=== PATIENT | male | born 1985 | race Caucasian/White ===

== ENCOUNTER → 2018-04-20 | Outpatient (CLI) | payer OTHER | END | disposition home or self-care (01) | LOC: C.LAB 09:06 | PROVIDERS: ATTEND Family Medicine | DX: Z00.00 Encounter for general adult medical examination without abnormal findings (principal) ==

== ENCOUNTER 2022-11-30 07:04 | Inpatient (IN) ==
[2022-11-30 08:02] LABS: Basophils # (auto) 0.03 K/uL (0-0.2); Basophils % (auto) 0.4 %; Eosinophils # (auto) 0.04 K/uL (0-0.50); Eosinophils % (auto) 0.6 %; Hematocrit (blood only) 49.1 % (42.0-52.0); Hemoglobin 16.8 g/dl (14.0-18.0); Immature Granulocytes # (auto) 0.02 K/uL (0.01-0.20); Immature Granulocytes % (auto) 0.3 %; Lymphocytes # (auto) 1.13 K/uL (1.2-3.4); Lymphocytes % (auto) 16.6 %; Mean Corpuscular Hemoglobin 30.8 pg (25.0-34.0); Mean Corpuscular Hgb Conc 34.2 g/dL (32.0-36.0); Mean Corpuscular Volume 89.9 fL (80.0-100.0); Mean Platelet Volume 9.3 fL (9.4-12.4); Monocytes # (auto) 0.49 K/uL (0.11-0.59); Monocytes % (auto) 7.2 %; Neutrophils # (auto) 5.09 K/uL (1.40-6.50); Neutrophils % (auto) 74.9 %; Platelet Count 258 K/uL (130-400); RDW Coefficient of Variation 11.8 % (11.5-14.5); RDW Standard Deviation 38.6 fL (36.4-46.3); Red Blood Count 5.46 M/uL (4.70-6.10)
--- NOTE | 2022-11-30 08:03 | CT Scan Report ---
CT head/brain wo con CLINICAL HISTORY: 37 years-old Male with delusional. Acutely altered mental status TECHNIQUE: Multiple axial CT images of the head were obtained without contrast. A dose lowering tech nique was utilized adhering to the principles of ALARA. CT DOSE: 537.48 mGy.cm COMPARISON: None. FINDINGS: No acute intracranial hemorrhage, midline shift, intracranial mass, hydrocephalus, territorial ischem ia or abnormal extra-axial collection. The calvarium is intact. The paranasal sinuses, mastoid air cells, and middle ear cavities are clear . IMPRESSION: No acute intracranial abnormality. ACT 112: Negative or not required by law. The above report was generated using voice recognition software. It may contain grammatical, syntax o r spelling errors. Electronically signed by: Po Ryan M.D. 11/30/2022 8:02 AM
--- NOTE | 2022-11-30 08:16 | Emergency Department Note ---
Impression & Plan Psychosis, Hallucinations ED Provider Note NAME: SHREYAS BROWN AGE: 37 SEX: M : 1985 ARRIVES VIA: Walk-In INFORMANT: [Patient][] ED PROVIDER(S): [Ramirez Leon MD] CHIEF COMPLAINT: Mental health evaluation HISTORY OF PRESENT ILLNESS: The patient is a 37-year-old male who presents to the ED with his . The patient has a history of anxiety. In the last several months, the patient has been demonstrating some odd behavior. Nothing threatening but his was concerned about some of his thoughts and activities during the day. Wednesday morning, 2 days ago, the patient woke from sleep and undressed. He walked out to the front door and his heard him talking to someone. There was no one there. He was naked. He was talking with God apparently. This morning, patient awoke early with his . He eventually crumpled to the floor and stated "I cannot do this anymore." His had a difficult time getting him off the floor into the car. He was not suicidal, he did not become aggressive. He presents for psychiatric help and is currently voluntary. As per his , he had a similar episode about a year ago although, not near this severe. He was started on antianxiety medication at the time and saw a counselor. The patient did recently have a brother commit suicide about a months ago. Patient and his have a child as of a month or so ago. As per his , the patient does not use illicit drugs or alcohol. He does use medical marijuana. PMHx/PSHx: See Below SOCIAL HISTORY: See Below. PHYSICAL EXAM: GENERAL: Patient is in no acute distress. HEENT: No acute trauma, normocephalic atraumatic, mucous membranes moist, no nasal congestion. NECK: No stridor, no adenopathy, no meningismus, trachea is midline. LUNGS: Clear to auscultation bilaterally, no wheeze, no rhonchi, breath sounds equal. HEART: Without murmurs gallops or rubs, regular rate and rhythm. ABDOMEN: Soft, nontender, bowel sounds positive, no peritonitis. EXTREMITIES: No cyanosis or edema, full range of motion of all the joints without pain or difficulty, no signs for acute trauma. NEUROLOGIC: Oriented x 3, no acute motor or sensory deficits, no focal weakness. SKIN: No rash, no jaundice, no diaphoresis. Psychiatric: Lying prone on the bed with his face in the pillow. Poor historian, answers yes and no to a few questions. DIFFERENTIAL DIAGNOSIS: Mood disorder, suicidality, psychosis, infection, hypoglycemia, electrolyte abnormalities, intracerebral event, toxicologic etiology, as well as other pathologies. EMERGENCY DEPARTMENT COURSE/PROCEDURES: Prior/Outside records reviewed: None. MEDICAL DECISION MAKING: There is no leukocytosis or concerning anemia. There is a normal platelet count. No renal failure or significant electrolyte abnormality. Bilirubin slightly elevated, the remaining liver enzymes were unremarkable. The patient appeared to be in a euthyroid state. Urinalysis showed potential dehydration, no infection. Aspirin, Tylenol and alcohol levels were not undetectable. Urine tox was positive for marijuana. COVID test returned negative. Brain CT showed no acute bleed or mass effect. Patient appears to be having an acute psychotic episode. He is hallucinating. He is not able to care for himself properly at home. Patient was felt medically clear, the patient was seen by psychiatry case management and by this [facility] psychiatric unit, [facility] Patient has been accepted to [facility]. as a voluntary psychiatric hospitalization. Patient remained cooperative and appeared stable while here in the ED. DISPOSITION: The patient's presentation and findings warrant a psychiatric hospitalization. Past Med/Surg History Medical History Psychological disorder Surgical History H/O wisdom tooth extraction History of ear surgery excisional biopsy of left earlobe cyst-08/09/19-Dr Mcdonough Family History Father Family history of diabetes mellitus in father Stroke Grandmother No problems noted. Grandfather Family history of diabetes mellitus in father Other No family history of adverse response to anesthesia No family history of bleeding disorder Social History Smoking Status: Never smoker packs per day: 1; Second Hand Exposure: Yes; Hx Alcohol Use: No Hx Substance Use: No Preferred Language: Congolese Communication Ability: Effective Hearing Ability: Normal Medical Referral Coordinator Required: No Beliefs That Will Affect Care: None marital status: Current Living Situation: Spouse current occupational status: unemployed Feels Safe at Home: Yes Gender Identity: Male Assistive Devices: None Allergies Allergies Allergy/AdvReac Type Severity Reaction Status Date / Time No Known Drug Allergies Allergy Verified 05/11/22 13:46 Home Meds Home Medications Medication Instructions Recorded Confirmed escitalopram oxalate 10 mg tablet 20 mg PO DAILY 03/11/22 11/30/22 (Lexapro) Results & Data (ED) Vital Signs Vital Signs - 24 hr 11/30/22 07:10 11/30/22 10:33 Temperature 36.3 C L 36.8 C Temperature Source Temporal Artery Scan Oral Pulse Rate 89 Pulse Rate [Left Finger] 86 Respiratory Rate 20 16 Respiratory Effort / Characteristics Non-Labored Spontaneous Respiratory Depth Normal Normal Blood Pressure 138/89 Blood Pressure [Left Arm] 138/93 Blood Pressure Mean 105 Blood Pressure Mean [Left Arm] 108 Pulse Oximetry 100 99 Oxygen Delivery Method Room Air Room Air Sepsis New/Unexplained Change in Mental Status N/A Sepsis Action Taken by Nursing No Action Required Home Medications Current Medication List: was personally reviewed by me Laboratory Data Attestation: I reviewed the patient's lab results. 11/30/22 07:40 11/30/22 07:40 Lab Results 11/30/22 11/30/22 11/30/22 Range/Units 07:22 07:40 07:40 WBC 6.80 (4.8-10.8) K/ul RBC 5.46 (4.70-6.10) M/uL Hgb 16.8 (14.0-18.0) g/dl Hct 49.1 (42.0-52.0) % MCV 89.9 (80.0-100.0) fL MCH 30.8 (25.0-34.0) pg MCHC 34.2 (32.0-36.0) g/dL RDW Std Deviation 38.6 (36.4-46.3) fL RDW Coeff of Kevin 11.8 (11.5-14.5) % Plt Count 258 (130-400) K/uL MPV 9.3 L (9.4-12.4) fL Immature Gran % (Auto) 0.3 % Neut % (Auto) 74.9 % Lymph % (Auto) 16.6 % Robeson % (Auto) 7.2 % Eos % (Auto) 0.6 % Baso % (Auto) 0.4 % Neut # (Auto) 5.09 (1.40-6.50) K/uL Lymph # (Auto) 1.13 L (1.2-3.4) K/uL Robeson # (Auto) 0.49 (0.11-0.59) K/uL Eos # (Auto) 0.04 (0-0.50) K/uL Baso # (Auto) 0.03 (0-0.2) K/uL Immature Gran # (Auto) 0.02 (0.01-0.20) K/uL Sodium 137 (136-145) mmol/L Potassium 3.7 (3.5-5.1) mmol/L Chloride 102 (98-107) mmol/L Carbon Dioxide 26 (21-32) mmol/L Anion Gap 9 (3-11) BUN 18 (6-23) mg/dl Creatinine 0.93 (0.6-1.4) mg/dl Est Cr Clr Drug Dosing Not Reportable Est GFR ( Amer) 119.4 ml/min Est GFR (Non-Af Amer) 103.0 ml/min BUN/Creatinine Ratio 19.4 (10-20) Glucose 140 H (70-99(Fasting)) mg/dl Calcium 9.9 (8.5-10.1) mg/dl Total Bilirubin 1.5 H (0.2-1.0) mg/dl AST 24 (13-39) U/L ALT 18 (7-52) U/L Alkaline Phosphatase 79 (34-104) U/L Total Protein 7.8 (6.0-8.3) gm/dl Albumin 4.7 (3.4-5.0) gm/dl Globulin 3.1 (2.5-4.0) gm/dl Albumin/Globulin Ratio 1.5 (0.9-2) TSH (0.300-4.500) uIu/ml Urine Color Urine Appearance (Clear) Urine pH (4.5-7.5) Ur Specific Prospect (1.000-1.030) Urine Protein (Negative) Urine Glucose (UA) (Negative) Urine Ketones (Negative) Urine Blood (Negative) Urine Nitrite (Negative) Urine Bilirubin (Negative) Urine Urobilinogen (Negative) Ur Leukocyte Esterase (Negative) Urine WBC (Auto) (0-5) /hpf Urine RBC (Auto) (0-4) /hpf U Hyaline Cast (Auto) (0-5) /lpf U Epithel Cells (Auto) (0-5) /lpf Urine Bacteria (Auto) (Negative) Salicylates (3.0-30) mg/dl Urine Opiates Screen (Neg) Ur Methadone, Qual (Neg) Acetaminophen (10-30) ug/ml Urine Barbiturates (Neg) Ur Phencyclidine (PCP) (Neg) U Amphetamin/Meth Scrn (Neg) MDMA (Ecstasy) Screen (Neg) U Benzodiazepines Scrn (Neg) Ur Cocaine Metabolite (Neg) U Marijuana (THC) Screen (Neg) Ethyl Alcohol mg/dL (<10.0) mg/dl SARS-CoV-2, RNA, NAAT NEGATIVE (NEGATIVE) 11/30/22 11/30/22 11/30/22 Range/Units 07:40 07:40 07:40 WBC (4.8-10.8) K/ul RBC (4.70-6.10) M/uL Hgb (14.0-18.0) g/dl Hct (42.0-52.0) % MCV (80.0-100.0) fL MCH (25.0-34.0) pg MCHC (32.0-36.0) g/dL RDW Std Deviation (36.4-46.3) fL RDW Coeff of Kevin (11.5-14.5) % Plt Count (130-400) K/uL MPV (9.4-12.4) fL Immature Gran % (Auto) % Neut % (Auto) % Lymph % (Auto) % Robeson % (Auto) % Eos % (Auto) % Baso % (Auto) % Neut # (Auto) (1.40-6.50) K/uL Lymph # (Auto) (1.2-3.4) K/uL Robeson # (Auto) (0.11-0.59) K/uL Eos # (Auto) (0-0.50) K/uL Baso # (Auto) (0-0.2) K/uL Immature Gran # (Auto) (0.01-0.20) K/uL Sodium (136-145) mmol/L Potassium (3.5-5.1) mmol/L Chloride (98-107) mmol/L Carbon Dioxide (21-32) mmol/L Anion Gap (3-11) BUN (6-23) mg/dl Creatinine (0.6-1.4) mg/dl Est Cr Clr Drug Dosing Est GFR ( Amer) ml/min Est GFR (Non-Af Amer) ml/min BUN/Creatinine Ratio (10-20) Glucose (70-99(Fasting)) mg/dl Calcium (8.5-10.1) mg/dl Total Bilirubin (0.2-1.0) mg/dl AST (13-39) U/L ALT (7-52) U/L Alkaline Phosphatase (34-104) U/L Total Protein (6.0-8.3) gm/dl Albumin (3.4-5.0) gm/dl Globulin (2.5-4.0) gm/dl Albumin/Globulin Ratio (0.9-2) TSH 1.188 (0.300-4.500) uIu/ml Urine Color Urine Appearance (Clear) Urine pH (4.5-7.5) Ur Specific Prospect (1.000-1.030) Urine Protein (Negative) Urine Glucose (UA) (Negative) Urine Ketones (Negative) Urine Blood (Negative) Urine Nitrite (Negative) Urine Bilirubin (Negative) Urine Urobilinogen (Negative) Ur Leukocyte Esterase (Negative) Urine WBC (Auto) (0-5) /hpf Urine RBC (Auto) (0-4) /hpf U Hyaline Cast (Auto) (0-5) /lpf U Epithel Cells (Auto) (0-5) /lpf Urine Bacteria (Auto) (Negative) Salicylates < 3.0 L (3.0-30) mg/dl Urine Opiates Screen (Neg) Ur Methadone, Qual (Neg) Acetaminophen < 3 L (10-30) ug/ml Urine Barbiturates (Neg) Ur Phencyclidine (PCP) (Neg) U Amphetamin/Meth Scrn (Neg) MDMA (Ecstasy) Screen (Neg) U Benzodiazepines Scrn (Neg) Ur Cocaine Metabolite (Neg) U Marijuana (THC) Screen (Neg) Ethyl Alcohol mg/dL < 10.0 (<10.0) mg/dl SARS-CoV-2, RNA, NAAT (NEGATIVE) 11/30/22 11/30/22 Range/Units 08:28 08:28 WBC (4.8-10.8) K/ul RBC (4.70-6.10) M/uL Hgb (14.0-18.0) g/dl Hct (42.0-52.0) % MCV (80.0-100.0) fL MCH (25.0-34.0) pg MCHC (32.0-36.0) g/dL RDW Std Deviation (36.4-46.3) fL RDW Coeff of Kevin (11.5-14.5) % Plt Count (130-400) K/uL MPV (9.4-12.4) fL Immature Gran % (Auto) % Neut % (Auto) % Lymph % (Auto) % Robeson % (Auto) % Eos % (Auto) % Baso % (Auto) % Neut # (Auto) (1.40-6.50) K/uL Lymph # (Auto) (1.2-3.4) K/uL Robeson # (Auto) (0.11-0.59) K/uL Eos # (Auto) (0-0.50) K/uL Baso # (Auto) (0-0.2) K/uL Immature Gran # (Auto) (0.01-0.20) K/uL Sodium (136-145) mmol/L Potassium (3.5-5.1) mmol/L Chloride (98-107) mmol/L Carbon Dioxide (21-32) mmol/L Anion Gap (3-11) BUN (6-23) mg/dl Creatinine (0.6-1.4) mg/dl Est Cr Clr Drug Dosing Est GFR ( Amer) ml/min Est GFR (Non-Af Amer) ml/min BUN/Creatinine Ratio (10-20) Glucose (70-99(Fasting)) mg/dl Calcium (8.5-10.1) mg/dl Total Bilirubin (0.2-1.0) mg/dl AST (13-39) U/L ALT (7-52) U/L Alkaline Phosphatase (34-104) U/L Total Protein (6.0-8.3) gm/dl Albumin (3.4-5.0) gm/dl Globulin (2.5-4.0) gm/dl Albumin/Globulin Ratio (0.9-2) TSH (0.300-4.500) uIu/ml Urine Color Dark Yellow Urine Appearance Clear (Clear) Urine pH 5.5 (4.5-7.5) Ur Specific Prospect 1.035 H (1.000-1.030) Urine Protein 1+ H (Negative) Urine Glucose (UA) Negative (Negative) Urine Ketones 4+ H (Negative) Urine Blood Negative (Negative) Urine Nitrite Negative (Negative) Urine Bilirubin 1+ H (Negative) Urine Urobilinogen Negative (Negative) Ur Leukocyte Esterase Trace H (Negative) Urine WBC (Auto) 1-5 (0-5) /hpf Urine RBC (Auto) 0-4 (0-4) /hpf U Hyaline Cast (Auto) 5-10 H (0-5) /lpf U Epithel Cells (Auto) 5-10 H (0-5) /lpf Urine Bacteria (Auto) Negative (Negative) Salicylates (3.0-30) mg/dl Urine Opiates Screen Neg (Neg) Ur Methadone, Qual Neg (Neg) Acetaminophen (10-30) ug/ml Urine Barbiturates Neg (Neg) Ur Phencyclidine (PCP) Neg (Neg) U Amphetamin/Meth Scrn Neg (Neg) MDMA (Ecstasy) Screen Neg (Neg) U Benzodiazepines Scrn Neg (Neg) Ur Cocaine Metabolite Neg (Neg) U Marijuana (THC) Screen Pos H (Neg) Ethyl Alcohol mg/dL (<10.0) mg/dl SARS-CoV-2, RNA, NAAT (NEGATIVE) Administered Medications Discontinued Medications Haloperidol (Haloperidol 5 Mg Tab) Confirm Administered Dose 5 mg PO .Serstech-MED ONE Stop: 11/30/22 14:17 Last Admin: 11/30/22 14:21 Dose: 5 mg Documented By: KELECHI Imaging Data Radiologist's Impression: Head CT 11/30/22 07:23 CT head/brain wo con CLINICAL HISTORY: 37 years-old Male with delusional. Acutely altered mental status TECHNIQUE: Multiple axial CT images of the head were obtained without contrast. A dose lowering technique was utilized adhering to the principles of ALARA. CT DOSE: 537.48 mGy.cm COMPARISON: None. FINDINGS: No acute intracranial hemorrhage, midline shift, intracranial mass, hydrocephalus, territorial ischemia or abnormal extra-axial collection. The calvarium is intact. The paranasal sinuses, mastoid air cells, and middle ear cavities are clear. IMPRESSION: No acute intracranial abnormality. ACT 112: Negative or not required by law. The above report was generated using voice recognition software. It may contain grammatical, syntax or spelling errors. Electronically signed by: Po Ryan M.D. 11/30/2022 8:02 AM Discharge Plan Visit Data Chief Complaint: Mental Health Evaluation Stated Complaint: MENTAL HEALTH CRISIS,DIZZINESS,NAUSEA ED Provider: Ramirez Leon Discharge Problem: Psychosis, Hallucinations Patient Disposition: Admitted As Inpatient Condition: Good Discharge Instructions Interventions: ED Discharge Assessment Last Done: 11/30/22 13:25
[2022-11-30 08:18] LABS: Alanine Aminotransferase 18 U/L (7-52); Albumin Globulin Ratio 1.5 (0.9-2); Albumin Level 4.7 gm/dl (3.4-5.0); Alkaline Phosphatase 79 U/L (34-104); Anion Gap 9 (3-11); Aspartate Aminotransferase 24 U/L (13-39); BUN Creatinine Ratio 19.4 (10-20); Bilirubin,Total 1.5 mg/dl (0.2-1.0); Blood Urea Nitrogen 18 mg/dl (6-23); Calcium 9.9 mg/dl (8.5-10.1); Carbon Dioxide 26 mmol/L (21-32); Chloride 102 mmol/L (98-107); Est GFR (African American) 119.4 ml/min; Globulin 3.1 gm/dl (2.5-4.0); Glucose 140 mg/dl (70-99(Fasting)); Potassium 3.7 mmol/L (3.5-5.1); Sodium 137 mmol/L (136-145); Total Protein 7.8 gm/dl (6.0-8.3)
[2022-11-30 08:37] LABS: Acetaminophen < 3 ug/ml (10-30); Salicylate < 3.0 mg/dl (3.0-30)
[2022-11-30 08:52] LABS: Appearance Urine Clear (Clear); Bacteria Urine Automated Negative (Negative); Blood Urine Negative (Negative); Color Urine Dark Yellow; Glucose Urine UA Negative (Negative); Ketones Urine 4+ (Negative); Leukocyte Esterase Urine Trace (Negative); Nitrite Urine Negative (Negative); Protein Urine 1+ (Negative); RBC Urine Automated 0-4 /hpf (0-4); Specific Gravity Urine 1.035 (1.000-1.030); Urobilinogen Urine Negative (Negative); pH Urine 5.5 (4.5-7.5)
[2022-11-30 08:58] LABS: Bilirubin Urine 1+ (Negative)
[2022-11-30 09:30] LABS: Amphetamines+Metham, Urine Neg (Neg); Barbiturates, Urine Neg (Neg); Benzodiazepine, Urine Neg (Neg); Cocaine, Urine Neg (Neg); MDMA (Ecstacy), Urine Neg (Neg); Methadone, Urine Neg (Neg); Opiate, Urine Neg (Neg); Phencyclidine, Urine Neg (Neg)
[2022-11-30] MEDS ORDERED: ALUMINUM/MAGNESIUM SUSP 30 ML UDC PO PRN (13:49)
[2022-11-30] MEDS ORDERED: hydrOXYzine HCl 25 MG TAB PO PRN (13:49)
[2022-11-30] MEDS ORDERED: SODIUM CHLORIDE 0.65% NA SOLN 45 ML (OCEAN) PRN (13:49)
[2022-11-30] MEDS ORDERED: MAGNESIUM HYDROXIDE SUSP 30 ML UDC PO PRN (13:49)
[2022-11-30] MEDS ORDERED: BISMUTH SUBSALICYLATE LIQD 236 ML PO PRN (13:49)
[2022-11-30] MEDS ORDERED: ACETAMINOPHEN 325 MG TAB PO PRN (13:49)
[2022-11-30] MEDS ORDERED: haloperidoL 5 MG TAB PO PRN (14:13)
[2022-11-30] MEDS ORDERED: OLANZapine 5 MG TABLET PO PRN (14:14)
[2022-11-30] MEDS ORDERED: haloperidoL 5 MG TAB PO ONE (14:16)
[2022-11-30] MEDS: risperiDONE 1 MG TABLET PO SCH (20:15)
[2022-11-30] MEDS ORDERED: risperiDONE 0.5 MG TABLET PO SCH (21:00)
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
[2022-12-01] MEDS: risperiDONE 1 MG TABLET PO SCH ×2 (08:30→21:14)
[2022-12-01] MEDS ORDERED: OLANZapine 5 MG TABLET PO PRN (10:32)
[2022-12-01] MEDS ORDERED: risperiDONE 0.5 MG TABLET PO PRN (12:02)
--- NOTE | 2022-12-02 09:05 | Psychiatric Progress Note ---
Date of Service December 02, 2022 Impression / Recommendations Impression Michael Rliey is a 37 year old man with a history of ADHD and depression who was admitted for bizarre behaviors, decreased sleep and inability to care for himself. Diagnostically consistent with unspecified psychosis, differential is broad including blaise/mixed episode of BPAD (decreased sleep, family history, and possible episode of hypomania in the past ~ 1 year ago, has been on SSRI) versus substance-induced psychosis 2/2 significant medical marijuana use versus MDD with psychotic features versus primary psychotic disorder (unlikely given no hx and would be atypical age of onset) vs medical cause (unlikely given normal head CT in ED and no significant lab abnormalities or neurological symptoms). He has not been eating well and UA consistent with this with elevated ketones and tachycardia so will continue to monitor closely. He denies any symptoms related to elevated BP or tachycardia. He is deemed unstable and requires psychiatric hospitalization for diagnostic clarification, safety and stabilization, medication management and development of further coping skills. MNPR due to paranoia and psychosis 12/02/2022: Ongoing poor sleep, psychomotor activation and elevated mood suggestive of acute blaise. Now refusing antipsychotic medication options and options to try alternative mood stabilizers or other sedating agents. Will order lorazpeam at hs to attempt to help with sleep. (1) Psychosis: (2) Cannabis use with anxiety disorder: Plan 12/02/2022: Start ativan 1mg HS prn insomnia 12/01/2022: The patient was admitted to the [facility] ([facility] mental health unit) on q15 min checks (behavioral with suicide precautions) for safety. The patient will participate in group, recreational, and milieu therapies and will be offered additional individual and family sessions as clinically appropriate. * Risperidone 1mg BID * Zyprexa 2.5mg BID prn for agitation/anxiety * Discontinue escitalopram given concern for possible manic vs mixed episode Inventory Assets Strengths: supportive relationships, willing to get treatment Needs: safety and stabilization, medication adjustment, additional coping skills, increased outpatient services Suicide Risk Level Suicide Risk Level: Moderate (q15 min suicide checks) (denies SI but with disorganized/bizarre behaviors and at times endorses depression but feels safe in the hospital, able to safety contract and agrees to let nursing/staff know should they develop plan, intent or feel unable ) Risk Factors Assessment Male: Yes : Yes Do You Have Access To A Gun?: Yes (pt needs firearms secured) Mental Health Diagnoses: Yes Substance Use Disorders: Yes Previous Attempt: No Family History of Suicide: Yes (extensive) Previous Psychiatric Hospitalization: No Hopelessness: No Protective Factors Assessment : Yes Responsible for Young Children: Yes 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 Chief Complaint "I would not like either of them". Review of Systems Sleep Information Total Hours of Sleep: 3.75 Sleep Comments: Frequent awakenings and restlessness Meal Information Percent Meal Consumed - Breakfast: 100 Percent Meal Consumed - Lunch: 75 Percent Meal Consumed - Dinner: 10 Subjective Subjective Patient was seen & assessed and interval progress reviewed with treatment team nursing and social work. Attending only exercise group as can't tolerate anything else. Spends most of the day pacing the unit walking up and down the halls. Last evening sat on the floor reading his patient handbook aloud. Confused at times, not able to recall his kids ages or whether or not his was a nurse at [facility] (which she has been for a long time). Refused his risper idone last night. Hardly slept last night. Tachycardic at times but he denies any symptoms related to this. Refused risperidone again today. Refusing any other mood stabilizers or antipsychotics as we discussed options that could help with sleep and thought clarity. Discussed my concern his symptoms may be impacted by cannabis use but also likely represent acute blaise. He states he prefers to "think about" medications but declines at this time. Reviewed that I would continue to have them offered to him as I think they are important. Reviewed my concerns about his poor sleep and that medication can help with this. Endorses "excellent" mood. Slightly intrusive/inappropriate with female staff at times. Physical Exam Psychiatric Orientation: alert and oriented x 3 Apperance: appropriately dressed and appropriately groomed Eye Contact: + fair eye contact Motor Behavior: + psychomotor agitation Speech: + abnormal rate/rhythm/volume of speech (slightly expansive) Affect: euthymic affect Mood: + anxious mood and + irritable mood Thought Process: + tangential thought process and + looseness of associations Thought Content: + paranoid and + delusions Suicidal Thoughts: denies suicidal thoughts, denies suicidal plan and denies suicidal intent Homicidal Thoughts: denies homicidal thoughts Hallucinations: + auditory hallucinations; no visual hallucinations Cognition: attention grossly intact and language grossly intact; + recent memory not intact and + remote memory not intact Insight: + limited insight Judgment: + limited judgement Vital Signs (Past 24 Hours) Last Vital Signs Temp 37 C 12/02/22 06:42 Pulse 130 H 12/02/22 06:43 Resp 18 12/02/22 06:42 BP 125/85 12/02/22 06:43 Pulse Ox 99 12/01/22 20:25 O2 Del Method Room Air 12/01/22 20:25 Results & Data ([facility]) Current Inpatient Medications Current Inpatient Medications: Current Inpatient Medications Acetaminophen (Acetaminophen 325 Mg Tab) 650 mg PO Q4H PRN PRN Reason: Headache or Minor Fever Stop: 12/30/22 13:48 Al Hydrox/Mg Hydrox/Simethicone (Aluminum/Magnesium Susp 30 Ml Udc) 30 ml PO Q4H PRN PRN Reason: GI Upset Stop: 12/30/22 13:48 Bismuth Subsalicylate (Bismuth Subsalicylate Liqd 236 Ml) 15 ml PO PRN PRN PRN Reason: Loose Stool Stop: 12/30/22 13:48 Haloperidol (Haloperidol 5 Mg Tab) 5 mg PO DAILY PRN PRN Reason: psychosis/agitation Stop: 12/30/22 14:12 Hydroxyzine HCl (Hydroxyzine Hcl 25 Mg Tab) 25 mg PO Q4H PRN PRN Reason: Anxiety Stop: 12/30/22 13:48 Hydroxyzine HCl (Hydroxyzine Hcl 25 Mg Tab) 50 mg PO HSZ PRN PRN Reason: Insomnia Stop: 12/30/22 13:48 Magnesium Hydroxide (Magnesium Hydroxide Susp 30 Ml Udc) 30 ml PO DAILY PRN PRN Reason: Constipation Stop: 12/30/22 13:48 Risperidone (Risperidone 1 Mg Tablet) 1 mg PO BID CLARIBEL Stop: 12/30/22 20:59 Last Admin: 12/01/22 21:14 Dose: Not Given Risperidone (Risperidone 0.5 Mg Tablet) 0.5 mg PO BID PRN PRN Reason: Anxiety/Agitation Stop: 12/31/22 12:14 Sodium Chloride (Sodium Chloride 0.65% Na Soln 45 Ml ([place])) 1 - 2 sprays NA PRN PRN PRN Reason: Nasal Dryness/Congestion Stop: 12/30/22 13:48 Mental Health & Subst Abuse Tx Therapist Name of Therapist: None Operating Table Assembler Name of Operating Table Assembler: None Post Discharge Appointments Primary Care Physician Name Of Family Doctor/PCP: Jacquie (PCP recently left/will be assigned new PCP) (1) Psychosis Psychosis type: unspecified psychosis type Qualified Code(s): F29 - Unspecified psychosis not due to a substance or known physiological condition
[2022-12-02] MEDS: risperiDONE 1 MG TABLET PO SCH ×2 (09:51→20:48)
[2022-12-02 10:35] LABS: Marijuana Quant, GCMS Urine 2101 ng/mL (<5)
[2022-12-02] MEDS: LORazepam 1 MG TAB PO PRN (20:48)
[2022-12-03] MEDS: risperiDONE 1 MG TABLET PO SCH ×2 (08:52→21:12)
--- NOTE | 2022-12-03 08:52 | Psychiatric Progress Note ---
Date of Service December 03, 2022 Impression / Recommendations Impression Michael Riley is a 37 year old man with a history of ADHD and depression who was admitted for bizarre behaviors, decreased sleep and inability to care for himself. Diagnostically consistent with unspecified psychosis, differential is broad including blaise/mixed episode of BPAD (decreased sleep, family history, and possible episode of hypomania in the past ~ 1 year ago, has been on SSRI) versus substance-induced psychosis 2/2 significant medical marijuana use (level 2,101 ng/mL) versus MDD with psychotic features versus primary psychotic disorder (unlikely given no hx and would be atypical age of onset) vs medical cause (unlikely given normal head CT in ED and no significant lab abnormalities or neurological symptoms). He has not been eating well and UA consistent with this with elevated ketones and tachycardia so will continue to monitor closely. He denies any symptoms related to elevated BP or tachycardia. He is deemed unstable and requires psychiatric hospitalization for diagnostic clarification, safety and stabilization, medication management and development of further coping skills. MNPR due to paranoia and psychosis 12/03/2022: Slept a little more with addition of ativan and took risperidone last night. Unwilling to consider a more sedating mood stabilizer/antipsychotic option so will continue with risperidone. Still with some tachycardia which could be from risperidone versus his frequent pacing/lack of sleep. Presentation remains suggestive of acute blaise. (1) Psychosis: (2) Cannabis use with anxiety disorder: (3) Bipolar 1 disorder with moderate blaise: Plan 12/03/2022: Continue current medications and treatment plan. Will attempt fasting lipid panel and glucose when he is better able to tolerate this. 12/02/2022: Start ativan 1mg HS prn insomnia 12/01/2022: The patient was admitted to the [facility] ([facility] mental health unit) on q15 min checks (behavioral with suicide precautions) for safety. The patient will participate in group, recreational, and milieu therapies and will be offered additional individual and family sessions as clinically appropriate. * Risperidone 1mg BID * Zyprexa 2.5mg BID prn for agitation/anxiety * Discontinue escitalopram given concern for possible manic vs mixed episode Inventory Assets Strengths: supportive relationships, willing to get treatment Needs: safety and stabilization, medication adjustment, additional coping skills, increased outpatient services Suicide Risk Level Suicide Risk Level: Moderate (q15 min suicide checks) (denies SI but with disorganized/bizarre behaviors and at times endorses depression but feels safe in the hospital, able to safety contract and agrees to let nursing/staff know should they develop plan, intent or feel unable ) Suicide Risk Level Comments: . 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 Chief Complaint "That sounds like me". Review of Systems Sleep Information Total Hours of Sleep: 5 Sleep Comments: Frequent awakenings and restlessness Meal Information Percent Meal Consumed - Breakfast: 100 Percent Meal Consumed - Lunch: 100 Percent Meal Consumed - Dinner: 90 Subjective Subjective Patient was seen & assessed and interval progress reviewed with treatment team nursing and social work. Took risperidone and prn ativan last night and slept 5 hours. Up and pacing again this morning but attended community meeting and was able to tolerate this. Remains very polite but seems to be distracted and speaking today in a somewhat odd monotone voice. Tells me "I'm feeling better". Wonders if he is better and now ready to leave the hospital, discussed my recommendation that I remain concerned about blaise and his limited sleep and thought disorganization. He disagrees with this but does today agree that he may have been experiencing blaise prior to coming to the hospital. Asks me what the word blaise means and we review how blaise in bipolar disorder can present. After listing of symptoms he tells me "that sounds like me before". Reviewed strong genetic link with BPAD and he agrees that his brother had BPAD. He doesn't know of anyone else in his family with this. Struggles to follow our discussion at times and remains very concrete. For example when we discuss that his brother had bipolar disorder and that this often runs in families he tells me "but he's not me, I'm not my brother". Offered him option of signing 72 hour notice, he chose not to sign this. Likes the risperidone and denies any side effects from this or from ativan last night. Still with some tachycardia but denies any symptoms from this. Unwilling to consider any other antipsychotics or more sedating options. Physical Exam Psychiatric Orientation: alert and oriented x 3 Apperance: appropriately dressed and appropriately groomed Eye Contact: + fair eye contact Motor Behavior: + psychomotor agitation Speech: + abnormal rate/rhythm/volume of speech (monotone) Affect: euthymic affect Mood: + anxious mood Thought Process: + tangential thought process, + looseness of associations and + concrete thought process Thought Content: + paranoid and + delusions Suicidal Thoughts: denies suicidal thoughts, denies suicidal plan and denies suicidal intent Homicidal Thoughts: denies homicidal thoughts Hallucinations: no auditory hallucinations (unclear if responding at times) and no visual hallucinations Cognition: language grossly intact; + recent memory not intact, + remote memory not intact and + attention not intact Insight: + limited insight Judgment: + limited judgement Vital Signs (Past 24 Hours) Last Vital Signs Temp 36.7 C 12/03/22 06:43 Pulse 109 H 12/03/22 06:43 Resp 18 12/03/22 06:43 BP 125/89 12/03/22 06:43 Pulse Ox 99 12/02/22 20:14 O2 Del Method Room Air 12/02/22 20:14 Results & Data ([facility]) Laboratory Results Laboratory Results - last 24 hr 11/30/22 08:28 U Marijuana THC Carboxy 2101 H Drug Screen Comment SEE NOTE Current Inpatient Medications Current Inpatient Medications: Current Inpatient Medications Acetaminophen (Acetaminophen 325 Mg Tab) 650 mg PO Q4H PRN PRN Reason: Headache or Minor Fever Stop: 12/30/22 13:48 Al Hydrox/Mg Hydrox/Simethicone (Aluminum/Magnesium Susp 30 Ml Udc) 30 ml PO Q4H PRN PRN Reason: GI Upset Stop: 12/30/22 13:48 Bismuth Subsalicylate (Bismuth Subsalicylate Liqd 236 Ml) 15 ml PO PRN PRN PRN Reason: Loose Stool Stop: 12/30/22 13:48 Haloperidol (Haloperidol 5 Mg Tab) 5 mg PO DAILY PRN PRN Reason: psychosis/agitation Stop: 12/30/22 14:12 Hydroxyzine HCl (Hydroxyzine Hcl 25 Mg Tab) 25 mg PO Q4H PRN PRN Reason: Anxiety Stop: 12/30/22 13:48 Hydroxyzine HCl (Hydroxyzine Hcl 25 Mg Tab) 50 mg PO HSZ PRN PRN Reason: Insomnia Stop: 12/30/22 13:48 Lorazepam (Lorazepam 1 Mg Tab) 1 mg PO HS PRN PRN Reason: insomnia Stop: 01/01/23 16:37 Last Admin: 12/02/22 20:48 Dose: 1 mg Magnesium Hydroxide (Magnesium Hydroxide Susp 30 Ml Udc) 30 ml PO DAILY PRN PRN Reason: Constipation Stop: 12/30/22 13:48 Risperidone (Risperidone 1 Mg Tablet) 1 mg PO BID CLARIBEL Stop: 12/30/22 20:59 Last Admin: 12/02/22 20:48 Dose: 1 mg Risperidone (Risperidone 0.5 Mg Tablet) 0.5 mg PO BID PRN PRN Reason: Anxiety/Agitation Stop: 12/31/22 12:14 Sodium Chloride (Sodium Chloride 0.65% Na Soln 45 Ml ([place])) 1 - 2 sprays NA PRN PRN PRN Reason: Nasal Dryness/Congestion Stop: 12/30/22 13:48 Mental Health & Subst Abuse Tx Therapist Name of Therapist: None Elephant Keeper Name of Elephant Keeper: None Post Discharge Appointments Primary Care Physician Name Of Family Doctor/PCP: Jacquie (PCP recently left/will be assigned new PCP) (1) Psychosis Psychosis type: unspecified psychosis type Qualified Code(s): F29 - Unspecified psychosis not due to a substance or known physiological condition
--- NOTE | 2022-12-04 09:12 | Psychiatric Progress Note ---
Date of Service December 04, 2022 Impression / Recommendations Impression Michael Riley is a 37 year old man with a history of ADHD and depression who was admitted for bizarre behaviors, decreased sleep and inability to care for himself. Diagnostically consistent with unspecified psychosis, differential is broad including blaise/mixed episode of BPAD (decreased sleep, family history, and possible episode of hypomania in the past ~ 1 year ago, has been on SSRI) versus substance-induced psychosis 2/2 significant medical marijuana use (level 2,101 ng/mL) versus MDD with psychotic features versus primary psychotic disorder (unlikely given no hx and would be atypical age of onset) vs medical cause (unlikely given normal head CT in ED and no significant lab abnormalities or neurological symptoms). He has not been eating well and UA consistent with this with elevated ketones and tachycardia so will continue to monitor closely. He denies any symptoms related to elevated BP or tachycardia. He is deemed unstable and requires psychiatric hospitalization for diagnostic clarification, safety and stabilization, medication management and development of further coping skills. MNPR due to paranoia and psychosis 12/04/2022: Refusing medication again with very poor sleep last night. Ongoing delusions that he expressed to his via phone call last night. Very superficical in his interaction with me, not willing to discuss taking medication again/alternative medication options today. Mood elevated and remains consistent with likely blaise. Denies any symptoms from tachycardia. (1) Psychosis: (2) Cannabis use with anxiety disorder: (3) Bipolar 1 disorder with moderate blaise: Plan 12/04/2022: Ongoing motivation interviewing related to encouragement to take medication. Very poor insight. 12/03/2022: Continue current medications and treatment plan. Will attempt fasting lipid panel and glucose when he is better able to tolerate this. 12/02/2022: Start ativan 1mg HS prn insomnia 12/01/2022: The patient was admitted to the [facility] ([facility] inpatient mental health unit) on q15 min checks (behavioral with suicide precautions) for safety. The patient will participate in group, recreational, and milieu therapies and will be offered additional individual and family sessions as clinically appropriate. * Risperidone 1mg BID * Zyprexa 2.5mg BID prn for agitation/anxiety * Discontinue escitalopram given concern for possible manic vs mixed episode Inventory Assets Strengths: supportive relationships, willing to get treatment Needs: safety and stabilization, medication adjustment, additional coping skills, increased outpatient services Suicide Risk Level Suicide Risk Level: Moderate (q15 min suicide checks) (denies SI but with disorganized/bizarre behaviors and at times endorses depression but feels safe in the hospital, able to safety contract and agrees to let nursing/staff know should they develop plan, intent or feel unable ) Suicide Risk Level Comments: . 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 Chief Complaint "I'm pretty good". Review of Systems Sleep Information Total Hours of Sleep: 3.75 Sleep Comments: Frequent awakenings and restlessness Meal Information Percent Meal Consumed - Breakfast: 100 Percent Meal Consumed - Lunch: 100 Percent Meal Consumed - Dinner: 80 Subjective Subjective Patient was seen & assessed and interval progress reviewed with treatment team nursing and social work. He called his last night and spoke with her on the phone. She then called and spoke with [facility] staff and reported that he said his baby and [id number] had "demonic eyes" that he noticed before coming into the hospital. Refused his medications last night and this morning. Today continues to walk the halls and spend time in his room but also interacting with some peers. Tells me his mood is "pretty good" and that his sleep was "restful rest". Discussed limited sleep last night and my concerns about this. He feels he slept a lot more than 3.75 hours and woke up only to take "a short walk" and went back to bed. Unwilling to discuss medication today. Physical Exam Psychiatric Orientation: alert and oriented x 3 Apperance: appropriately dressed and appropriately groomed Eye Contact: + fair eye contact Motor Behavior: + psychomotor agitation (bouncing stress balls) Speech: + abnormal rate/rhythm/volume of speech (monotone) Affect: euthymic affect Mood: + anxious mood Thought Process: + tangential thought process and + looseness of associations Thought Content: + paranoid and + delusions Suicidal Thoughts: denies suicidal thoughts, denies suicidal plan and denies suicidal intent Homicidal Thoughts: denies homicidal thoughts Hallucinations: no auditory hallucinations (unclear if responding at times) and no visual hallucinations Cognition: language grossly intact; + recent memory not intact, + remote memory not intact and + attention not intact Insight: + severely impaired insight Judgment: + limited judgement Vital Signs (Past 24 Hours) Last Vital Signs Temp 36.6 C 12/04/22 06:47 Pulse 123 H 12/04/22 06:47 Resp 18 12/04/22 06:47 BP 132/82 12/04/22 06:47 Pulse Ox 99 12/02/22 20:14 O2 Del Method Room Air 12/03/22 21:01 Results & Data ([facility]) Current Inpatient Medications Current Inpatient Medications: Current Inpatient Medications Acetaminophen (Acetaminophen 325 Mg Tab) 650 mg PO Q4H PRN PRN Reason: Headache or Minor Fever Stop: 12/30/22 13:48 Al Hydrox/Mg Hydrox/Simethicone (Aluminum/Magnesium Susp 30 Ml Udc) 30 ml PO Q4H PRN PRN Reason: GI Upset Stop: 12/30/22 13:48 Bismuth Subsalicylate (Bismuth Subsalicylate Liqd 236 Ml) 15 ml PO PRN PRN PRN Reason: Loose Stool Stop: 12/30/22 13:48 Haloperidol (Haloperidol 5 Mg Tab) 5 mg PO DAILY PRN PRN Reason: psychosis/agitation Stop: 12/30/22 14:12 Hydroxyzine HCl (Hydroxyzine Hcl 25 Mg Tab) 25 mg PO Q4H PRN PRN Reason: Anxiety Stop: 12/30/22 13:48 Hydroxyzine HCl (Hydroxyzine Hcl 25 Mg Tab) 50 mg PO HSZ PRN PRN Reason: Insomnia Stop: 12/30/22 13:48 Lorazepam (Lorazepam 1 Mg Tab) 1 mg PO HS PRN PRN Reason: insomnia Stop: 01/01/23 16:37 Last Admin: 12/02/22 20:48 Dose: 1 mg Magnesium Hydroxide (Magnesium Hydroxide Susp 30 Ml Udc) 30 ml PO DAILY PRN PRN Reason: Constipation Stop: 12/30/22 13:48 Risperidone (Risperidone 1 Mg Tablet) 1 mg PO BID CLARIBEL Stop: 12/30/22 20:59 Last Admin: 12/03/22 21:12 Dose: Not Given Risperidone (Risperidone 0.5 Mg Tablet) 0.5 mg PO BID PRN PRN Reason: Anxiety/Agitation Stop: 12/31/22 12:14 Sodium Chloride (Sodium Chloride 0.65% Na Soln 45 Ml ([place])) 1 - 2 sprays NA PRN PRN PRN Reason: Nasal Dryness/Congestion Stop: 12/30/22 13:48 Mental Health & Subst Abuse Tx Therapist Name of Therapist: None [employer] Name of [employer]: None Post Discharge Appointments Primary Care Physician Name Of Family Doctor/PCP: Jacquie (PCP recently left/will be assigned new PCP) (1) Psychosis Psychosis type: unspecified psychosis type Qualified Code(s): F29 - Unspecified psychosis not due to a substance or known physiological condition
[2022-12-04] MEDS: risperiDONE 1 MG TABLET PO SCH ×2 (09:16→20:52)
[2022-12-04] MEDS: LORazepam 1 MG TAB PO PRN (23:24)
[2022-12-05] MEDS: risperiDONE 1 MG TABLET PO SCH (09:32)
--- NOTE | 2022-12-05 10:06 | Psychiatric Progress Note ---
Date of Service December 05, 2022 Impression / Recommendations Impression Michael Riley is a 37 year old man with a history of ADHD and depression who was admitted for bizarre behaviors, decreased sleep and inability to care for himself. Diagnostically consistent with unspecified psychosis, differential is broad including blaise/mixed episode of BPAD (decreased sleep, family history, and possible episode of hypomania in the past ~ 1 year ago, has been on SSRI) versus substance-induced psychosis 2/2 significant medical marijuana use (level 2,101 ng/mL) versus MDD with psychotic features versus primary psychotic disorder (unlikely given no hx and would be atypical age of onset) vs medical cause (unlikely given normal head CT in ED and no significant lab abnormalities or neurological symptoms). He has not been eating well and UA consistent with this with elevated ketones and tachycardia so will continue to monitor closely. He denies any symptoms related to elevated BP or tachycardia. He is deemed unstable and requires psychiatric hospitalization for diagnostic clarification, safety and stabilization, medication management and development of further coping skills. MNPR due to paranoia and psychosis 12/05/2022: Continues to refuse medication most of the time, though he did appear to have slept better last night. Signed a "72-hour" request for discharge last night. has expressed strong concerns about his having said, among other things, that he didn't think she was actually his (but rather someone/something purporting to be her), that he "could see a demon in the eyes" of their baby, and that he's been driving while using cannabis intensively. On approach he is doing yoga poses on the floor by his bed and said he was ready to leave. When I introduced myself, he grabbed a notebook and began writing down all the details on my ID badge and attempting to create a verbatim transcript of the interaction. I told him that this detracted greatly from our actually being able to talk about anything (not least because he was writing very slowly, which seemed more related to marked difficulty following the basic conversation than any trouble writing). He continued to deny any symptoms or history that should be of concern to anyone and to say that he's been meeting God recently. I attempted to speak with pt about his cannabis use, which we've learned has recently involved his using at least hourly. He never addressed this directly, but confabulates that a nurse (who was present) told him he had "delta-8" (THC) in his system. (In fact, the nuse told him that his THC level was very high but did not mention synthetic forms of THC at all). After initially referring to "delta-8" as "synthetic THC", went on to say that he had never heard of it and had no idea that delta-9 THC was the "normal" variety. He became very argumentative about his THC use and insisted it could cause no problems because it's a plant. I attempted to speak with pt about his request for discharge vs.the serious safety concerns raised by his and the fact that the treatment team and I had determined that it was appropriate to seek a Part 302 involuntary admission despite his having ostensibly signed himself in. As soon as I said that some concerns had been raised about some things he's said he announced that he didn't feel safe (with me and the charge nurse) and wanted to have any discussion with all of the other patients present. He then left the room but kept trying to ensure that he was behind me. Later, pt dispatched a female peer to retrieve belongings from his room while he sat in a common area. Pt has been redirected about boundaries several times, including for hugging female peers. He is not willing to discuss any of this with me. While pt is not exhibiting psychomotor agitation or pressured speech, he does appear to have racing thoughts, grandiosity, persecutory beliefs, poor interpersonal boundaries. He has no insight into why anyone might think he needs treatment or what could be risky about his behavior. 12/04/2022: Refusing medication again with very poor sleep last night. Ongoing delusions that he expressed to his via phone call last night. Very superficical in his interaction with me, not willing to discuss taking medication again/alternative medication options today. Mood elevated and remains consistent with likely blaise. Denies any symptoms from tachycardia. (1) Bipolar I disorder, most recent episode manic, severe with psychotic features: Present on Admission?: Yes (2) Psychosis: Present on Admission?: Yes (3) Cannabis use with anxiety disorder: Present on Admission?: Yes Plan 11/07/2022: * Pt now has a completed 302 warrant * will discontinue haloperidol, risperidone, and olanzapine in favor of monotherapy with an agent that can be given orally or parenterally and that has the capacity to sedate him if this is required due to dangerous behavior. Olanzapine would be a candidate, but little benefit has been seen with it. For now, will start chlorpromazine 100 mg BID and 50 mg PO/IM Q4 HR PRN psychosis or blaise. * will discontinue lorazepam as no benefit seen * A private room remains medically necessary for the safety of self and others. 12/04/2022: Ongoing motivation interviewing related to encouragement to take medication. Very poor insight. 12/03/2022: Continue current medications and treatment plan. Will attempt fasting lipid panel and glucose when he is better able to tolerate this. 12/02/2022: Start ativan 1mg HS prn insomnia 12/01/2022: The patient was admitted to the [facility] ([facility] mental health unit) on q15 min checks (behavioral with suicide precautions) for safety. The patient will participate in group, recreational, and milieu therapies and will be offered additional individual and family sessions as clinically appropriate. * Risperidone 1mg BID * Zyprexa 2.5mg BID prn for agitation/anxiety * Discontinue escitalopram given concern for possible manic vs mixed episode Inventory Assets Strengths: supportive relationships, willing to get treatment Needs: safety and stabilization, medication adjustment, additional coping skills, increased outpatient services Suicide Risk Level Suicide Risk Level: Moderate (q15 min suicide checks) (denies SI but with disorganized/bizarre behaviors and at times endorses depression but feels safe in the hospital, able to safety contract and agrees to let nursing/staff know should they develop plan, intent or feel unable ) Suicide Risk Level Comments: . 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 Chief Complaint "I need to write all this down, and I need other patients here". Review of Systems Sleep Information Total Hours of Sleep: 3.75 Sleep Comments: Took Ativan for sleep; frequent requests to leave and be discharged; awoke early Meal Information Percent Meal Consumed - Breakfast: 0 Percent Meal Consumed - Lunch: 100 Percent Meal Consumed - Dinner: 80 Subjective Subjective Patient was seen & assessed and interval progress reviewed with treatment team (nursing and social work) Physical Exam Psychiatric Orientation: alert, oriented to person, oriented to place, oriented to time and + guarded; + uncooperative Apperance: appropriately dressed and appropriately groomed Eye Contact: + fair eye contact Motor Behavior: no abnormal motor movements and + psychomotor agitation (bouncing stress balls) lies doing yoga poses for an extended period Speech: + abnormal rate/rhythm/volume of speech (monotone) disjointed, somewhat aprosodic Affect: + labile affect Mood: + anxious mood and + irritable mood Thought Process: + circumstantial thought process, + tangential thought process, + looseness of associations and + concrete thought process Thought Content: + paranoid and + delusions voices belief that baby looked as if there were a demon in her and that his may actually be someone else Suicidal Thoughts: denies suicidal thoughts, denies suicidal plan and denies suicidal intent Homicidal Thoughts: denies homicidal thoughts Hallucinations: no auditory hallucinations (unclear if responding at times) and no visual hallucinations Cognition: + recent memory not intact, + remote memory not intact and + attention not intact Estimated Intelligence: consistent with education level Insight: + severely impaired insight Judgment: + impaired judgement Vital Signs (Past 24 Hours) Last Vital Signs Temp 37 C 12/05/22 06:44 Pulse 118 H 12/05/22 06:45 Resp 18 12/05/22 06:44 BP 137/100 12/05/22 06:45 Pulse Ox 98 12/04/22 19:32 O2 Del Method Room Air 12/04/22 19:32 Results & Data ([facility]) Current Inpatient Medications Current Inpatient Medications: Current Inpatient Medications Acetaminophen (Acetaminophen 325 Mg Tab) 650 mg PO Q4H PRN PRN Reason: Headache or Minor Fever Stop: 12/30/22 13:48 Al Hydrox/Mg Hydrox/Simethicone (Aluminum/Magnesium Susp 30 Ml Udc) 30 ml PO Q4H PRN PRN Reason: GI Upset Stop: 12/30/22 13:48 Bismuth Subsalicylate (Bismuth Subsalicylate Liqd 236 Ml) 15 ml PO PRN PRN PRN Reason: Loose Stool Stop: 12/30/22 13:48 Haloperidol (Haloperidol 5 Mg Tab) 5 mg PO DAILY PRN PRN Reason: psychosis/agitation Stop: 12/30/22 14:12 Hydroxyzine HCl (Hydroxyzine Hcl 25 Mg Tab) 25 mg PO Q4H PRN PRN Reason: Anxiety Stop: 12/30/22 13:48 Hydroxyzine HCl (Hydroxyzine Hcl 25 Mg Tab) 50 mg PO HSZ PRN PRN Reason: Insomnia Stop: 12/30/22 13:48 Lorazepam (Lorazepam 1 Mg Tab) 1 mg PO HS PRN PRN Reason: insomnia Stop: 01/01/23 16:37 Last Admin: 12/04/22 23:24 Dose: 1 mg Magnesium Hydroxide (Magnesium Hydroxide Susp 30 Ml Udc) 30 ml PO DAILY PRN PRN Reason: Constipation Stop: 12/30/22 13:48 Risperidone (Risperidone 1 Mg Tablet) 1 mg PO BID CLARIBEL Stop: 12/30/22 20:59 Last Admin: 12/05/22 09:32 Dose: Not Given Risperidone (Risperidone 0.5 Mg Tablet) 0.5 mg PO BID PRN PRN Reason: Anxiety/Agitation Stop: 12/31/22 12:14 Sodium Chloride (Sodium Chloride 0.65% Na Soln 45 Ml ([place])) 1 - 2 sprays NA PRN PRN PRN Reason: Nasal Dryness/Congestion Stop: 12/30/22 13:48 Mental Health & Subst Abuse Tx Therapist Name of Therapist: None [employer] Name of [employer]: None Post Discharge Appointments Primary Care Physician Name Of Family Doctor/PCP: Jacquie (PCP recently left/will be assigned new PCP) (2) Psychosis Psychosis type: unspecified psychosis type Qualified Code(s): F29 - Unspecified psychosis not due to a substance or known physiological condition
[2022-12-05] MEDS ORDERED: chlorproMAZINE HCL 25 MG TAB PO PRN (12:49)
[2022-12-05] MEDS ORDERED: chlorproMAZINE HCL 25 MG/ML AMP IM PRN (12:49)
--- NOTE | 2022-12-06 07:58 | Psychiatric Progress Note ---
Date of Service December 06, 2022 Impression / Recommendations Impression Michael Riley is a 37 year old man with a history of ADHD and depression who was admitted for bizarre behaviors, decreased sleep and inability to care for himself. Diagnostically consistent with unspecified psychosis, differential is broad including blaise/mixed episode of BPAD (decreased sleep, family history, and possible episode of hypomania in the past ~ 1 year ago, has been on SSRI) versus substance-induced psychosis 2/2 significant medical marijuana use (level 2,101 ng/mL) versus MDD with psychotic features versus primary psychotic disorder (unlikely given no hx and would be atypical age of onset) vs medical cause (unlikely given normal head CT in ED and no significant lab abnormalities or neurological symptoms). He has not been eating well and UA consistent with this with elevated ketones and tachycardia so will continue to monitor closely. He denies any symptoms related to elevated BP or tachycardia. He is deemed unstable and requires psychiatric hospitalization for diagnostic clarification, safety and stabilization, medication management and development of further coping skills. MNPR due to paranoia and psychosis 12/06/2022: Spent much of the night up requesting discharge and this morning was pacing around the unit looking toward the floor. However, on approach later this morning is dozing lightly in bed, greets me appropriately. He tells me he's "a little dizzy" on standing, asks how much longer I think he'll be here. After refusing numerous times, eventually agreed to take chlorpromazine and has had 2 doses. Reviewed that it could cause postural hypotension (as well as dystonia, tardive dyskinesia, impaired glucose metabolism). I recommended pt contact his and ensure that he understands what her concerns have been. Pt was appropriate throught my interaction with him today. 12/05/2022: Continues to refuse medication most of the time, though he did appear to have slept better last night. Signed a "72-hour" request for discharge last night. has expressed strong concerns about his having said, among other things, that he didn't think she was actually his (but rather someone/something purporting to be her), that he "could see a demon in the eyes" of their baby, and that he's been driving while using cannabis intensively. On approach he is doing yoga poses on the floor by his bed and said he was ready to leave. When I introduced myself, he grabbed a notebook and began writing down all the details on my ID badge and attempting to create a verbatim transcript of the interaction. I told him that this detracted greatly from our actually being able to talk about anything (not least because he was writing very slowly, which seemed more related to marked difficulty following the basic conversation than any trouble writing). He continued to deny any symptoms or history that should be of concern to anyone and to say that he's been meeting God recently. I attempted to speak with pt about his cannabis use, which we've learned has recently involved his using at least hourly. He never addressed this directly, but confabulates that a nurse (who was present) told him he had "delta-8" (THC) in his system. (In fact, the nuse told him that his THC level was very high but did not mention synthetic forms of THC at all). After initially referring to "delta-8" as "synthetic THC", went on to say that he had never heard of it and had no idea that delta-9 THC was the "normal" variety. He became very argumentative about his THC use and insisted it could cause no problems because it's a plant. I attempted to speak with pt about his request for discharge vs.the serious safety concerns raised by his and the fact that the treatment team and I had determined that it was appropriate to seek a Part 302 involuntary admission despite his having ostensibly signed himself in. As soon as I said that some concerns had been raised about some things he's said he announced that he didn't feel safe (with me and the charge nurse) and wanted to have any discussion with all of the other patients present. He then left the room but kept trying to ensure that he was behind me. Later, pt dispatched a female peer to retrieve belongings from his room while he sat in a common area. Pt has been redirected about boundaries several times, including for hugging female peers. He is not willing to discuss any of this with me. While pt is not exhibiting psychomotor agitation or pressured speech, he does appear to have racing thoughts, grandiosity, persecutory beliefs, poor interpersonal boundaries. He has no insight into why anyone might think he needs treatment or what could be risky about his behavior. 12/04/2022: Refusing medication again with very poor sleep last night. Ongoing delusions that he expressed to his via phone call last night. Very superficical in his interaction with me, not willing to discuss taking medication again/alternative medication options today. Mood elevated and remains consistent with likely blaise. Denies any symptoms from tachycardia. (1) Bipolar I disorder, most recent episode manic, severe with psychotic features: (2) Psychosis: (3) Cannabis use with anxiety disorder: Plan 12/06/2022: * continue chlorpromazine 100 mg BID and 50 mg PO/IM Q4 HR PRN psychosis or blaise; monitor for postural dizziness * A private room remains medically necessary for the safety of self and others. 12/05/2022: * Pt now has a completed 302 warrant * will discontinue haloperidol, risperidone, and olanzapine in favor of monotherapy with an agent that can be given orally or parenterally and that has the capacity to sedate him if this is required due to dangerous behavior. Olanzapine would be a candidate, but little benefit has been seen with it. For now, will start chlorpromazine 100 mg BID and 50 mg PO/IM Q4 HR PRN psychosis or blaise. * will discontinue lorazepam as no benefit seen * A private room remains medically necessary for the safety of self and others. 12/04/2022: Ongoing motivation interviewing related to encouragement to take medication. Very poor insight. 12/03/2022: Continue current medications and treatment plan. Will attempt fasting lipid panel and glucose when he is better able to tolerate this. 12/02/2022: Start ativan 1mg HS prn insomnia 12/01/2022: The patient was admitted to the [facility] ([facility] [place] [facility]) on q15 min checks (behavioral with suicide precautions) for safety. The patient will participate in group, recreational, and milieu therapies and will be offered additional individual and family sessions as clinically appropriate. * Risperidone 1mg BID * Zyprexa 2.5mg BID prn for agitation/anxiety * Discontinue escitalopram given concern for possible manic vs mixed episode Inventory Assets Strengths: supportive relationships, willing to get treatment Needs: safety and stabilization, medication adjustment, additional coping skills, increased outpatient services Suicide Risk Level Suicide Risk Level: Moderate (q15 min suicide checks) (denies SI but with disorganized/bizarre behaviors and at times endorses depression but feels safe in the hospital, able to safety contract and agrees to let nursing/staff know should they develop plan, intent or feel unable ) Suicide Risk Level Comments: . 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 Chief Complaint "I'm OK, I think". Review of Systems Sleep Information Total Hours of Sleep: 3 Sleep Comments: Took Ativan for sleep; frequent requests to leave and be discharged; awoke early Meal Information Percent Meal Consumed - Breakfast: 0 Percent Meal Consumed - Lunch: 100 Percent Meal Consumed - Dinner: 50 Subjective Subjective Patient was seen & assessed and interval progress reviewed with ( nursing and social work) Physical Exam Psychiatric Orientation: alert, oriented to person, oriented to place, oriented to time and + guarded; + uncooperative Apperance: appropriately dressed and appropriately groomed Eye Contact: good eye contact and + fair eye contact Motor Behavior: no abnormal motor movements Speech: normal rate/rhythm/volume of speech (monotone) Affect: + constricted affect Mood: + anxious mood and + dysphoric mood Thought Process: + circumstantial thought process and + tangential thought process Thought Content: reality based without delusions Suicidal Thoughts: denies suicidal thoughts, denies suicidal plan and denies suicidal intent Homicidal Thoughts: denies homicidal thoughts Hallucinations: no auditory hallucinations (unclear if responding at times) and no visual hallucinations Cognition: recent memory grossly intact, remote memory grossly intact and language grossly intact; + attention not intact Estimated Intelligence: consistent with education level Insight: + limited insight Judgment: + limited judgement Vital Signs (Past 24 Hours) Last Vital Signs Temp 36.4 C L 12/06/22 06:39 Pulse 125 H 12/06/22 06:40 Resp 18 12/06/22 06:39 BP 130/90 12/06/22 06:40 Pulse Ox 98 12/05/22 20:11 O2 Del Method Room Air 12/05/22 20:11 Results & Data ([facility]) Current Inpatient Medications Current Inpatient Medications: Current Inpatient Medications Acetaminophen (Acetaminophen 325 Mg Tab) 650 mg PO Q4H PRN PRN Reason: Headache or Minor Fever Stop: 12/30/22 13:48 Al Hydrox/Mg Hydrox/Simethicone (Aluminum/Magnesium Susp 30 Ml Udc) 30 ml PO Q4H PRN PRN Reason: GI Upset Stop: 12/30/22 13:48 Bismuth Subsalicylate (Bismuth Subsalicylate Liqd 236 Ml) 15 ml PO PRN PRN PRN Reason: Loose Stool Stop: 12/30/22 13:48 Chlorpromazine HCl (Chlorpromazine Hcl 100 Mg Tab) 100 mg PO BID CLARIBEL Stop: 01/04/23 12:59 Last Admin: 12/05/22 17:14 Dose: 100 mg Chlorpromazine HCl (Chlorpromazine Hcl 25 Mg Tab) 50 mg PO Q4 PRN PRN Reason: psychosis or blaise Stop: 01/04/23 12:48 Last Admin: 12/05/22 21:56 Dose: 50 mg Chlorpromazine HCl (Chlorpromazine Hcl 25 Mg/Ml Amp) 50 mg IM Q4 PRN PRN Reason: psychosis or blaise, if oral form cannot be administered Stop: 01/04/23 12:48 Hydroxyzine HCl (Hydroxyzine Hcl 25 Mg Tab) 25 mg PO Q4H PRN PRN Reason: Anxiety Stop: 12/30/22 13:48 Hydroxyzine HCl (Hydroxyzine Hcl 25 Mg Tab) 50 mg PO HSZ PRN PRN Reason: Insomnia Stop: 12/30/22 13:48 Magnesium Hydroxide (Magnesium Hydroxide Susp 30 Ml Udc) 30 ml PO DAILY PRN PRN Reason: Constipation Stop: 12/30/22 13:48 Sodium Chloride (Sodium Chloride 0.65% Na Soln 45 Ml ([place])) 1 - 2 sprays NA PRN PRN PRN Reason: Nasal Dryness/Congestion Stop: 12/30/22 13:48 Mental Health & Subst Abuse Tx Therapist Name of Therapist: None Director Of Medical Services Name of Director Of Medical Services: None Post Discharge Appointments Primary Care Physician Name Of Family Doctor/PCP: Jacquie (PCP recently left/will be assigned new PCP) (2) Psychosis Psychosis type: unspecified psychosis type Qualified Code(s): F29 - Unspecified psychosis not due to a substance or known physiological condition
--- NOTE | 2022-12-07 10:42 | Psychiatric Progress Note ---
Date of Service December 07, 2022 Impression / Recommendations Impression Michael Riley is a 37 year old man with a history of ADHD and depression who was admitted for bizarre behaviors, decreased sleep and inability to care for himself. Diagnostically consistent with unspecified psychosis, differential is broad including blaise/mixed episode of BPAD (decreased sleep, family history, and possible episode of hypomania in the past ~ 1 year ago, has been on SSRI) versus substance-induced psychosis 2/2 significant medical marijuana use (level 2,101 ng/mL) versus MDD with psychotic features versus primary psychotic disorder (unlikely given no hx and would be atypical age of onset) vs medical cause (unlikely given normal head CT in ED and no significant lab abnormalities or neurological symptoms). He has not been eating well and UA consistent with this with elevated ketones and tachycardia so will continue to monitor closely. He denies any symptoms related to elevated BP or tachycardia. He is deemed unstable and requires psychiatric hospitalization for diagnostic clarification, safety and stabilization, medication management and development of further coping skills. MNPR due to paranoia and psychosis 12/07/2022: On approach today, pt was pacing the halls, but wall willing to stop to speak with me. He volunteers that he's "been feeling a little better" (thought he still can't really say in what way he's not been feeling well). He says "the dizziness is improving" and he has noted it only on first standing in the morning. Has continued to accept ordered medication since yesterday. No PRN chlorpromazine has been required. There are no aparent new or worse problems. He continues to present as odd and to speak of his "spiritual awakening", but has not voiced any bizarre beliefs. He does not appear to have spoken with his about her concerns. 12/06/2022: Spent much of the night up requesting discharge and this morning was pacing around the unit looking toward the floor. However, on approach later this morning is dozing lightly in bed, greets me appropriately. He tells me he's "a little dizzy" on standing, asks how much longer I think he'll be here. After refusing numerous times, eventually agreed to take chlorpromazine and has had 2 doses. Reviewed that it could cause postural hypotension (as well as dystonia, tardive dyskinesia, impaired glucose metabolism). I recommended pt contact his and ensure that he understands what her concerns have been. Pt was appropriate throughout my interaction with him today. 12/05/2022: Continues to refuse medication most of the time, though he did appear to have slept better last night. Signed a "72-hour" request for discharge last night. has expressed strong concerns about his having said, among other things, that he didn't think she was actually his (but rather someone/something purporting to be her), that he "could see a demon in the eyes" of their baby, and that he's been driving while using cannabis intensively. On approach he is doing yoga poses on the floor by his bed and said he was ready to leave. When I introduced myself, he grabbed a notebook and began writing down all the details on my ID badge and attempting to create a verbatim transcript of the interaction. I told him that this detracted greatly from our actually being able to talk about anything (not least because he was writing very slowly, which seemed more related to marked difficulty following the basic conversation than any trouble writing). He continued to deny any symptoms or history that should be of concern to anyone and to say that he's been meeting God recently. I attempted to speak with pt about his cannabis use, which we've learned has recently involved his using at least hourly. He never addressed this directly, but confabulates that a nurse (who was present) told him he had "delta-8" (THC) in his system. (In fact, the nuse told him that his THC level was very high but did not mention synthetic forms of THC at all). After initially referring to "delta-8" as "synthetic THC", went on to say that he had never heard of it and had no idea that delta-9 THC was the "normal" variety. He became very argumentative about his THC use and insisted it could cause no problems because it's a plant. I attempted to speak with pt about his request for discharge vs.the serious safety concerns raised by his and the fact that the treatment team and I had determined that it was appropriate to seek a Part 302 involuntary admission despite his having ostensibly signed himself in. As soon as I said that some concerns had been raised about some things he's said he announced that he didn't feel safe (with me and the charge nurse) and wanted to have any discussion with all of the other patients present. He then left the room but kept trying to ensure that he was behind me. Later, pt dispatched a female peer to retrieve belongings from his room while he sat in a common area. Pt has been redirected about boundaries several times, including for hugging female peers. He is not willing to discuss any of this with me. While pt is not exhibiting psychomotor agitation or pressured speech, he does appear to have racing thoughts, grandiosity, persecutory beliefs, poor interpersonal boundaries. He has no insight into why anyone might think he needs treatment or what could be risky about his behavior. 12/04/2022: Refusing medication again with very poor sleep last night. Ongoing delusions that he expressed to his via phone call last night. Very superficical in his interaction with me, not willing to discuss taking medication again/alternative medication options today. Mood elevated and remains consistent with likely blaise. Denies any symptoms from tachycardia. (1) Bipolar I disorder, most recent episode manic, severe with psychotic features: Present on Admission?: Yes (2) Psychosis: Present on Admission?: Yes (3) Cannabis use with anxiety disorder: Present on Admission?: Yes Plan 12/07/2022: * continue chlorpromazine 100 mg BID and 50 mg PO/IM Q4 HR PRN psychosis or blaise; monitor for postural dizziness * will continue to try to engage pt in the milieu * encourace pt to speak with his about his concerns (since he lacks insight into reasons he's here) * A private room remains medically necessary for the safety of self and others. 12/06/2022: * continue chlorpromazine 100 mg BID and 50 mg PO/IM Q4 HR PRN psychosis or blaise; monitor for postural dizziness * A private room remains medically necessary for the safety of self and others. 12/05/2022: * Pt now has a completed 302 warrant * will discontinue haloperidol, risperidone, and olanzapine in favor of monotherapy with an agent that can be given orally or parenterally and that has the capacity to sedate him if this is required due to dangerous behavior. Olanzapine would be a candidate, but little benefit has been seen with it. For now, will start chlorpromazine 100 mg BID and 50 mg PO/IM Q4 HR PRN psychosis or blaise. * will discontinue lorazepam as no benefit seen * A private room remains medically necessary for the safety of self and others. 12/04/2022: Ongoing motivation interviewing related to encouragement to take medication. Very poor insight. 12/03/2022: Continue current medications and treatment plan. Will attempt fasting lipid panel and glucose when he is better able to tolerate this. 12/02/2022: Start ativan 1mg HS prn insomnia 12/01/2022: The patient was admitted to the [facility] ([facility]) on q15 min checks (behavioral with suicide precautions) for safety. The patient will participate in group, recreational, and milieu therapies and will be offered additional individual and family sessions as clinically appropriate. * Risperidone 1mg BID * Zyprexa 2.5mg BID prn for agitation/anxiety * Discontinue escitalopram given concern for possible manic vs mixed episode Inventory Assets Strengths: supportive relationships, willing to get treatment Needs: safety and stabilization, medication adjustment, additional coping skills, increased outpatient services Suicide Risk Level Suicide Risk Level: Moderate (q15 min suicide checks) (denies SI but with disorganized/bizarre behaviors and at times endorses depression but feels safe in the hospital, able to safety contract and agrees to let nursing/staff know should they develop plan, intent or feel unable ) Suicide Risk Level Comments: . 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 Chief Complaint "Doing a little better". 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 Meal Information Percent Meal Consumed - Breakfast: 75 Percent Meal Consumed - Lunch: 100 Percent Meal Consumed - Dinner: 75 Subjective Subjective Patient was seen & assessed and interval progress reviewed with treatment team (nursing and social work) Physical Exam Psychiatric Orientation: alert, oriented to person, oriented to place, oriented to time and + guarded; + uncooperative Apperance: appropriately dressed and appropriately groomed Eye Contact: + fair eye contact Motor Behavior: no abnormal motor movements and + psychomotor agitation (bouncing stress balls) Speech: normal rate/rhythm/volume of speech (monotone) Affect: + constricted affect Mood: + anxious mood, + irritable mood and + dysphoric mood Thought Process: + circumstantial thought process, + tangential thought process and + concrete thought process Thought Content: + paranoid and + delusions Suicidal Thoughts: denies suicidal thoughts, denies suicidal plan and denies suicidal intent Homicidal Thoughts: denies homicidal thoughts Hallucinations: no auditory hallucinations (unclear if responding at times) and no visual hallucinations Cognition: recent memory grossly intact, remote memory grossly intact and language grossly intact; + attention not intact Estimated Intelligence: consistent with education level Insight: + limited insight Judgment: + limited judgement Vital Signs (Past 24 Hours) Last Vital Signs Temp 36.5 C 12/07/22 06:45 Pulse 132 H 12/07/22 06:45 Resp 18 12/07/22 06:45 BP 130/98 12/07/22 06:45 Pulse Ox 98 12/06/22 20:01 O2 Del Method Room Air 12/06/22 20:01 Results & Data ([facility]) Current Inpatient Medications Current Inpatient Medications: Current Inpatient Medications Acetaminophen (Acetaminophen 325 Mg Tab) 650 mg PO Q4H PRN PRN Reason: Headache or Minor Fever Stop: 12/30/22 13:48 Al Hydrox/Mg Hydrox/Simethicone (Aluminum/Magnesium Susp 30 Ml Udc) 30 ml PO Q4H PRN PRN Reason: GI Upset Stop: 12/30/22 13:48 Bismuth Subsalicylate (Bismuth Subsalicylate Liqd 236 Ml) 15 ml PO PRN PRN PRN Reason: Loose Stool Stop: 12/30/22 13:48 Chlorpromazine HCl (Chlorpromazine Hcl 100 Mg Tab) 100 mg PO BID CLARIBEL Stop: 01/04/23 12:59 Last Admin: 12/07/22 08:03 Dose: 100 mg Chlorpromazine HCl (Chlorpromazine Hcl 25 Mg Tab) 50 mg PO Q4 PRN PRN Reason: psychosis or blaise Stop: 01/04/23 12:48 Last Admin: 12/05/22 21:56 Dose: 50 mg Chlorpromazine HCl (Chlorpromazine Hcl 25 Mg/Ml Amp) 50 mg IM Q4 PRN PRN Reason: psychosis or blaise, if oral form cannot be administered Stop: 01/04/23 12:48 Hydroxyzine HCl (Hydroxyzine Hcl 25 Mg Tab) 25 mg PO Q4H PRN PRN Reason: Anxiety Stop: 12/30/22 13:48 Hydroxyzine HCl (Hydroxyzine Hcl 25 Mg Tab) 50 mg PO HSZ PRN PRN Reason: Insomnia Stop: 12/30/22 13:48 Magnesium Hydroxide (Magnesium Hydroxide Susp 30 Ml Udc) 30 ml PO DAILY PRN PRN Reason: Constipation Stop: 12/30/22 13:48 Sodium Chloride (Sodium Chloride 0.65% Na Soln 45 Ml ([place])) 1 - 2 sprays NA PRN PRN PRN Reason: Nasal Dryness/Congestion Stop: 12/30/22 13:48 Mental Health & Subst Abuse Tx Therapist Name of Therapist: None Pc Technician Name of Pc Technician: None Post Discharge Appointments Primary Care Physician Name Of Family Doctor/PCP: Jacquie (PCP recently left/will be assigned new PCP) E&M Selection based on Time Time Spent Minutes Spent on Pre-Visit Items: 9 (review of record, including reading nursing and social work notes) Minutes Spent During Visit: 19 (supportive psychotherapy using cognitive- behavioral tools) Minutes Spent Post-Visit: 8 (multidisciplinary treatment team meeting, documentation) Total Minutes Spent: 36 (2) Psychosis Psychosis type: unspecified psychosis type Qualified Code(s): F29 - Unspecified psychosis not due to a substance or known physiological condition
--- NOTE | 2022-12-08 10:49 | Psychiatric Progress Note ---
Date of Service December 08, 2022 Impression / Recommendations Impression Michael Riley is a 37 year old man with a history of ADHD and depression who was admitted for bizarre behaviors, decreased sleep and inability to care for himself. Diagnostically consistent with unspecified psychosis, differential is broad including blaise/mixed episode of BPAD (decreased sleep, family history, and possible episode of hypomania in the past ~ 1 year ago, has been on SSRI) versus substance-induced psychosis 2/2 significant medical marijuana use (level 2,101 ng/mL) versus MDD with psychotic features versus primary psychotic disorder (unlikely given no hx and would be atypical age of onset) vs medical cause (unlikely given normal head CT in ED and no significant lab abnormalities or neurological symptoms). He has not been eating well and UA consistent with this with elevated ketones and tachycardia so will continue to monitor closely. He denies any symptoms related to elevated BP or tachycardia. He is deemed unstable and requires psychiatric hospitalization for diagnostic clarification, safety and stabilization, medication management and development of further coping skills. MNPR due to paranoia and psychosis 12/08/2022: Announced yesterday that he wasn't going to take any more medication and wanted us to supply him with a cardiology coordinator so he could "get out of here". Since this took place after he requested and got patient information materials about chlorpromazine, I asked what concerns he had about the medication - he said he had no concerns at all about it, but believes he doesn't need any medication so isn't going to take it. Pt tells me he has spoken with his a couple of times since we met yesterday but that he has not spoken with her about her concerns about his safety. Pt maintained a pleasant and appropriate demeanor with me even when we were clearly disagreeing about treatment. He has not voiced any delusions; that he's experienced a "spiritual awakening" does not represent a delusion and isn't really hyperreligious in that he speaks of this infrequently and does not appear preoccupied with such thoughts. He has tended to pace fairly rapidly, especially in the evenings, but is easily redirected from this and will stop and converse appropriately. Staff do report that yesterday when he was requesting a cardiology coordinator and decrying our giving him medication he was on a bit of a rant, but they did not think this warranted administering any PRN medication. As of now, medication (chlorpromazine) is ordered, but he is declining it. PRN is ordered if needed but has not been needed. While I believe the 302 is appropriate based on his presentation prior to admission, I do not believe I could justify prolonging an involuntary stay nor that an attempt to get an order for this would succeed. If he's to be held involuntarily, he is entitled to receive treatment yet doesn't meet criteria for involuntary medication. It appears likely that we will need to discharge him fairly soon while nobody on the treatment team is very comfortable with his leaving on no treatment. It did take a full day before he agreed to take the chlorpromazine recently, so he may well yet change his mind and accept medication again. 12/07/2022: On approach today, pt was pacing the halls, but wall willing to stop to speak with me. He volunteers that he's "been feeling a little better" (thought he still can't really say in what way he's not been feeling well). He says "the dizziness is improving" and he has noted it only on first standing in the morning. Has continued to accept ordered medication since yesterday. No PRN chlorpromazine has been required. There are no apparent new or worse problems. He continues to present as odd and to speak of his "spiritual awakening", but has not voiced any bizarre beliefs. He does not appear to have spoken with his about her concerns. 12/06/2022: Spent much of the night up requesting discharge and this morning was pacing around the unit looking toward the floor. However, on approach later this morning is dozing lightly in bed, greets me appropriately. He tells me he's "a little dizzy" on standing, asks how much longer I think he'll be here. After refusing numerous times, eventually agreed to take chlorpromazine and has had 2 doses. Reviewed that it could cause postural hypotension (as well as dystonia, tardive dyskinesia, impaired glucose metabolism). I recommended pt contact his and ensure that he understands what her concerns have been. Pt was appropriate throughout my interaction with him today. 12/05/2022: Continues to refuse medication most of the time, though he did appear to have slept better last night. Signed a "72-hour" request for discharge last night. has expressed strong concerns about his having said, among other things, that he didn't think she was actually his (but rather someone/something purporting to be her), that he "could see a demon in the eyes" of their baby, and that he's been driving while using cannabis intensively. On approach he is doing yoga poses on the floor by his bed and said he was ready to leave. When I introduced myself, he grabbed a notebook and began writing down all the details on my ID badge and attempting to create a verbatim transcript of the interaction. I told him that this detracted greatly from our actually being able to talk about anything (not least because he was writing very slowly, which seemed more related to marked difficulty following the basic conversation than any trouble writing). He continued to deny any symptoms or history that should be of concern to anyone and to say that he's been meeting God recently. I attempted to speak with pt about his cannabis use, which we've learned has recently involved his using at least hourly. He never addressed this directly, but confabulates that a nurse (who was present) told him he had "delta-8" (THC) in his system. (In fact, the nuse told him that his THC level was very high but did not mention synthetic forms of THC at all). After initially referring to "delta-8" as "synthetic THC", went on to say that he had never heard of it and had no idea that delta-9 THC was the "normal" variety. He became very argumentative about his THC use and insisted it could cause no problems because it's a plant. I attempted to speak with pt about his request for discharge vs.the serious safety concerns raised by his and the fact that the treatment team and I had determined that it was appropriate to seek a Part 302 involuntary admission despite his having ostensibly signed himself in. As soon as I said that some concerns had been raised about some things he's said he announced that he didn't feel safe (with me and the charge nurse) and wanted to have any discussion with all of the other patients present. He then left the room but kept trying to ensure that he was behind me. Later, pt dispatched a female peer to retrieve belongings from his room while he sat in a common area. Pt has been redirected about boundaries several times, including for hugging female peers. He is not willing to discuss any of this with me. While pt is not exhibiting psychomotor agitation or pressured speech, he does appear to have racing thoughts, grandiosity, persecutory beliefs, poor interpersonal boundaries. He has no insight into why anyone might think he needs treatment or what could be risky about his behavior. 12/04/2022: Refusing medication again with very poor sleep last night. Ongoing delusions that he expressed to his via phone call last night. Very superficical in his interaction with me, not willing to discuss taking medication again/alternative medication options today. Mood elevated and remains consistent with likely blaise. Denies any symptoms from tachycardia. (1) Bipolar I disorder, most recent episode manic, severe with psychotic features: (2) Psychosis: (3) Cannabis use with anxiety disorder: Plan 12/08/2022: * encourage use of chlorpromazine 100 mg BID * chlorpromazine 50 mg PO/IM Q4 HR PRN psychosis or blaise * will continue to try to engage pt in the milieu * family meeting as soon as this can be arranged * A private room remains medically necessary for the safety of self and others. 12/07/2022: * continue chlorpromazine 100 mg BID and 50 mg PO/IM Q4 HR PRN psychosis or blaise; monitor for postural dizziness * will continue to try to engage pt in the milieu * encourace pt to speak with his about his concerns (since he lacks insight into reasons he's here) * A private room remains medically necessary for the safety of self and others. 12/06/2022: * continue chlorpromazine 100 mg BID and 50 mg PO/IM Q4 HR PRN psychosis or blaise; monitor for postural dizziness * A private room remains medically necessary for the safety of self and others. 12/05/2022: * Pt now has a completed 302 warrant * will discontinue haloperidol, risperidone, and olanzapine in favor of monotherapy with an agent that can be given orally or parenterally and that has the capacity to sedate him if this is required due to dangerous behavior. Olanzapine would be a candidate, but little benefit has been seen with it. For now, will start chlorpromazine 100 mg BID and 50 mg PO/IM Q4 HR PRN psychosis or blaise. * will discontinue lorazepam as no benefit seen * A private room remains medically necessary for the safety of self and others. 12/04/2022: Ongoing motivation interviewing related to encouragement to take medication. Very poor insight. 12/03/2022: Continue current medications and treatment plan. Will attempt fasting lipid panel and glucose when he is better able to tolerate this. 12/02/2022: Start ativan 1mg HS prn insomnia 12/01/2022: The patient was admitted to the [facility] ([facility] unit) on q15 min checks (behavioral with suicide precautions) for safety. The patient will participate in group, recreational, and milieu therapies and will be offered additional individual and family sessions as clinically appropriate. * Risperidone 1mg BID * Zyprexa 2.5mg BID prn for agitation/anxiety * Discontinue escitalopram given concern for possible manic vs mixed episode Inventory Assets Strengths: supportive relationships, willing to get treatment Needs: safety and stabilization, medication adjustment, additional coping skills, increased outpatient services Suicide Risk Level Suicide Risk Level: Moderate (q15 min suicide checks) (denies SI but with disorganized/bizarre behaviors and at times endorses depression but feels safe in the hospital, able to safety contract and agrees to let nursing/staff know should they develop plan, intent or feel unable ) Suicide Risk Level Comments: . 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 Chief Complaint "I'm perfectly fine". 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 Meal Information Percent Meal Consumed - Breakfast: 100 Percent Meal Consumed - Lunch: 100 Percent Meal Consumed - Dinner: 100 Subjective Subjective Patient was seen & assessed and interval progress reviewed with treatment team (nursing and social work) Physical Exam Psychiatric Orientation: alert, oriented x 3, oriented to person, oriented to place, oriented to time and + guarded; + uncooperative Apperance: appropriately dressed and appropriately groomed Eye Contact: good eye contact and + fair eye contact Motor Behavior: no abnormal motor movements and + psychomotor agitation (bouncing stress balls) Speech: normal rate/rhythm/volume of speech (monotone) Affect: + elated affect Mood: + irritable mood Thought Process: + circumstantial thought process, + tangential thought process and + concrete thought process Thought Content: reality based without delusions Suicidal Thoughts: denies suicidal thoughts, denies suicidal plan and denies suicidal intent Homicidal Thoughts: denies homicidal thoughts Hallucinations: no auditory hallucinations (unclear if responding at times) and no visual hallucinations Cognition: recent memory grossly intact, remote memory grossly intact and language grossly intact; + attention not intact Estimated Intelligence: consistent with education level Insight: + limited insight Judgment: + limited judgement Vital Signs (Past 24 Hours) Last Vital Signs Temp 36.8 C 12/08/22 06:50 Pulse 112 H 12/08/22 06:51 Resp 18 12/08/22 06:50 BP 140/94 12/08/22 06:51 Pulse Ox 98 12/06/22 20:01 O2 Del Method Room Air 12/06/22 20:01 Results & Data ([facility]) Current Inpatient Medications Current Inpatient Medications: Current Inpatient Medications Acetaminophen (Acetaminophen 325 Mg Tab) 650 mg PO Q4H PRN PRN Reason: Headache or Minor Fever Stop: 12/30/22 13:48 Al Hydrox/Mg Hydrox/Simethicone (Aluminum/Magnesium Susp 30 Ml Udc) 30 ml PO Q4H PRN PRN Reason: GI Upset Stop: 12/30/22 13:48 Bismuth Subsalicylate (Bismuth Subsalicylate Liqd 236 Ml) 15 ml PO PRN PRN PRN Reason: Loose Stool Stop: 12/30/22 13:48 Chlorpromazine HCl (Chlorpromazine Hcl 100 Mg Tab) 100 mg PO BID CLARIBEL Stop: 01/04/23 12:59 Last Admin: 12/08/22 08:25 Dose: Not Given Chlorpromazine HCl (Chlorpromazine Hcl 25 Mg Tab) 50 mg PO Q4 PRN PRN Reason: psychosis or blaise Stop: 01/04/23 12:48 Last Admin: 12/05/22 21:56 Dose: 50 mg Chlorpromazine HCl (Chlorpromazine Hcl 25 Mg/Ml Amp) 50 mg IM Q4 PRN PRN Reason: psychosis or blaise, if oral form cannot be administered Stop: 01/04/23 12:48 Hydroxyzine HCl (Hydroxyzine Hcl 25 Mg Tab) 25 mg PO Q4H PRN PRN Reason: Anxiety Stop: 12/30/22 13:48 Hydroxyzine HCl (Hydroxyzine Hcl 25 Mg Tab) 50 mg PO HSZ PRN PRN Reason: Insomnia Stop: 12/30/22 13:48 Magnesium Hydroxide (Magnesium Hydroxide Susp 30 Ml Udc) 30 ml PO DAILY PRN PRN Reason: Constipation Stop: 12/30/22 13:48 Sodium Chloride (Sodium Chloride 0.65% Na Soln 45 Ml ([place])) 1 - 2 sprays NA PRN PRN PRN Reason: Nasal Dryness/Congestion Stop: 12/30/22 13:48 Mental Health & Subst Abuse Tx Therapist Name of Therapist: None Cricket Coach Name of Cricket Coach: None Post Discharge Appointments Primary Care Physician Name Of Family Doctor/PCP: Jacquie (PCP recently left/will be assigned new PCP) E&M Selection based on Time Time Spent Minutes Spent on Pre-Visit Items: 14 (multidisciplinary treatment team meeting, review of record including reading nursing and social work notes) Minutes Spent During Visit: 25 (interview, medication education, supportive psychotherapy using cognitive-behavioral tools including addressing distorted beliefs surrounding medication use) Minutes Spent Post-Visit: 10 (documentation, coordination of care, communication with relevant members of the treatment team) Total Minutes Spent: 49 (2) Psychosis Psychosis type: unspecified psychosis type Qualified Code(s): F29 - Unspecified psychosis not due to a substance or known physiological condition
[2022-12-09] MEDS: hydrOXYzine HCl 25 MG TAB PO PRN ×3 (03:22→19:47)
--- NOTE | 2022-12-09 11:36 | Psychiatric Progress Note ---
Date of Service December 09, 2022 Impression / Recommendations Impression Michael Riley is a 37 year old man with a history of ADHD and depression who was admitted for bizarre behaviors, decreased sleep and inability to care for himself. Diagnostically consistent with unspecified psychosis, differential is broad including blaise/mixed episode of BPAD (decreased sleep, family history, and possible episode of hypomania in the past ~ 1 year ago, has been on SSRI) versus substance-induced psychosis 2/2 significant medical marijuana use (level 2,101 ng/mL) versus MDD with psychotic features versus primary psychotic disorder (unlikely given no hx and would be atypical age of onset) vs medical cause (unlikely given normal head CT in ED and no significant lab abnormalities or neurological symptoms). He has not been eating well and UA consistent with this with elevated ketones and tachycardia so will continue to monitor closely. He denies any symptoms related to elevated BP or tachycardia. He is deemed unstable and requires psychiatric hospitalization for diagnostic clarification, safety and stabilization, medication management and development of further coping skills. MNPR due to paranoia and psychosis 12/09/2025: Remains unwilling to "take any medications that could cause any side effects" though he did accept hydrozyzine twice, once last night for sleep and again this morning for anxiety. He thought this was very helpful and he experienced no side effects. Still sleeping poorly - was up twice last night, though he was quiet. Continues to spend a lot of time doing yoga poses. An lighting adviser visited him on the unit yesterday, appearing to been told by the pt. he has an upcoming hearing (he doesn't). Remains somewhat blissful about his "spiritual awakening" and utterly dismissive that his or anyone else might have any reason to be concerned that he harbored any delusions that might present a risk of harm if he were to act on them. Pt does not agree that he said anything about seeing a demon in his child's eyes, but his attempts to explain what he really said or meant are vague and rambling. During a family meeting yesterday, pt said that when he presented to the ED he "was acting" and that he often does this. He exhibited poor insight into how unlikely this seems to others or into how this would still be very problematic for those around him. He appeared unconcerned about the degree of mistrust this elicits in his or the likelihood that their relationship may not survive. At this time, I'm unable to elicit any clear evidence of psychotic symptoms, though he certainly does present as somewhat paranoid. He is elevated and expansive to a degree but has not presented problematic behavior on the unit. He has not required any PRN medication. We will continue to work to elicit his participation in the treatment plan, but if this remains unsuccessful we will need to discharge him tomorrow. 12/08/2022: Announced yesterday that he wasn't going to take any more medication and wanted us to supply him with a certified histologic technician so he could "get out of here". Since this took place after he requested and got patient information materials about chlorpromazine, I asked what concerns he had about the medication - he said he had no concerns at all about it, but believes he doesn't need any medication so isn't going to take it. Pt tells me he has spoken with his a couple of times since we met yesterday but that he has not spoken with her about her concerns about his safety. Pt maintained a pleasant and appropriate demeanor with me even when we were clearly disagreeing about treatment. He has not voiced any delusions; that he's experienced a "spiritual awakening" does not represent a delusion and isn't really hyperreligious in that he speaks of this infrequently and does not appear preoccupied with such thoughts. He has tended to pace fairly rapidly, especially in the evenings, but is easily redirected from this and will stop and converse appropriately. Staff do report that yesterday when he was requesting a certified histologic technician and decrying our giving him medication he was on a bit of a rant, but they did not think this warranted administering any PRN medication. As of now, medication (chlorpromazine) is ordered, but he is declining it. PRN is ordered if needed but has not been needed. While I believe the 302 is appropriate based on his presentation prior to admission, I do not believe I could justify prolonging an involuntary stay nor that an attempt to get an order for this would succeed. If he's to be held involuntarily, he is entitled to receive treatment yet doesn't meet criteria for involuntary medication. It appears likely that we will need to discharge him fairly soon while nobody on the treatment team is very comfortable with his leaving on no treatment. It did take a full day before he agreed to take the chlorpromazine recently, so he may well yet change his mind and accept medication again. 12/07/2022: On approach today, pt was pacing the halls, but wall willing to stop to speak with me. He volunteers that he's "been feeling a little better" (thought he still can't really say in what way he's not been feeling well). He says "the dizziness is improving" and he has noted it only on first standing in the morning. Has continued to accept ordered medication since yesterday. No PRN chlorpromazine has been required. There are no apparent new or worse problems. He continues to present as odd and to speak of his "spiritual awakening", but has not voiced any bizarre beliefs. He does not appear to have spoken with his about her concerns. 12/06/2022: Spent much of the night up requesting discharge and this morning was pacing around the unit looking toward the floor. However, on approach later this morning is dozing lightly in bed, greets me appropriately. He tells me he's "a little dizzy" on standing, asks how much longer I think he'll be here. After refusing numerous times, eventually agreed to take chlorpromazine and has had 2 doses. Reviewed that it could cause postural hypotension (as well as dys david, tardive dyskinesia, impaired glucose metabolism). I recommended pt contact his and ensure that he understands what her concerns have been. Pt was appropriate throughout my interaction with him today. 12/05/2022: Continues to refuse medication most of the time, though he did appear to have slept better last night. Signed a "72-hour" request for discharge last night. has expressed strong concerns about his having said, among other things, that he didn't think she was actually his (but rather someone/something purporting to be her), that he "could see a demon in the eyes" of their baby, and that he's been driving while using cannabis intensively. On approach he is doing yoga poses on the floor by his bed and said he was ready to leave. When I introduced myself, he grabbed a notebook and began writing down all the details on my ID badge and attempting to create a verbatim transcript of the interaction. I told him that this detracted greatly from our actually being able to talk about anything (not least because he was writing very slowly, which seemed more related to marked difficulty following the basic conversation than any trouble writing). He continued to deny any symptoms or history that should be of concern to anyone and to say that he's been meeting God recently. I attempted to speak with pt about his cannabis use, which we've learned has recently involved his using at least hourly. He never addressed this directly, but confabulates that a nurse (who was present) told him he had "delta-8" (THC) in his system. (In fact, the nuse told him that his THC level was very high but did not mention synthetic forms of THC at all). After initially referring to "delta-8" as "synthetic THC", went on to say that he had never heard of it and had no idea that delta-9 THC was the "normal" variety. He became very argumentative about his THC use and insisted it could cause no problems because it's a plant. I attempted to speak with pt about his request for discharge vs.the serious safety concerns raised by his and the fact that the treatment team and I had determined that it was appropriate to seek a Part 302 involuntary admission despite his having ostensibly signed himself in. As soon as I said that some concerns had been raised about some things he's said he announced that he didn't feel safe (with me and the charge nurse) and wanted to have any discussion with all of the other patients present. He then left the room but kept trying to ensure that he was behind me. Later, pt dispatched a female peer to retrieve belongings from his room while he sat in a common area. Pt has been redirected about boundaries several times, including for hugging female peers. He is not willing to discuss any of this with me. While pt is not exhibiting psychomotor agitation or pressured speech, he does appear to have racing thoughts, grandiosity, persecutory beliefs, poor interpersonal boundaries. He has no insight into why anyone might think he needs treatment or what could be risky about his behavior. 12/04/2022: Refusing medication again with very poor sleep last night. Ongoing delusions that he expressed to his via phone call last night. Very superficical in his interaction with me, not willing to discuss taking medication again/alternative medication options today. Mood elevated and remains consistent with likely blaise. Denies any symptoms from tachycardia. (1) Bipolar I disorder, most recent episode manic, severe with psychotic features: (2) Psychosis: (3) Cannabis use with anxiety disorder: Plan 12/09/2022: * encourage use of chlorpromazine 100 mg BID * continue chlorpromazine 50 mg PO/IM Q4 HR PRN psychosis or blaise * will continue to try to engage pt in the milieu * anticipate discharge likely tomorrow * A private room remains medically necessary for the safety of self and others. 12/08/2022: * encourage use of chlorpromazine 100 mg BID * chlorpromazine 50 mg PO/IM Q4 HR PRN psychosis or blaise * will continue to try to engage pt in the milieu * family meeting as soon as this can be arranged * A private room remains medically necessary for the safety of self and others. 12/07/2022: * continue chlorpromazine 100 mg BID and 50 mg PO/IM Q4 HR PRN psychosis or blaise; monitor for postural dizziness * will continue to try to engage pt in the milieu * encourace pt to speak with his about his concerns (since he lacks insight into reasons he's here) * A private room remains medically necessary for the safety of self and others. 12/06/2022: * continue chlorpromazine 100 mg BID and 50 mg PO/IM Q4 HR PRN psychosis or blaise; monitor for postural dizziness * A private room remains medically necessary for the safety of self and others. 12/05/2022: * Pt now has a completed 302 warrant * will discontinue haloperidol, risperidone, and olanzapine in favor of monotherapy with an agent that can be given orally or parenterally and that has the capacity to sedate him if this is required due to dangerous behavior. Olanzapine would be a candidate, but little benefit has been seen with it. For now, will start chlorpromazine 100 mg BID and 50 mg PO/IM Q4 HR PRN psychosis or blaise. * will discontinue lorazepam as no benefit seen * A private room remains medically necessary for the safety of self and others. 12/04/2022: Ongoing motivation interviewing related to encouragement to take medication. Very poor insight. 12/03/2022: Continue current medications and treatment plan. Will attempt fasting lipid panel and glucose when he is better able to tolerate this. 12/02/2022: Start ativan 1mg HS prn insomnia 12/01/2022: The patient was admitted to the [facility] ([facility] unit) on q15 min checks (behavioral with suicide precautions) for safety. The patient will participate in group, recreational, and milieu therapies and will be offered additional individual and family sessions as clinically appropriate. * Risperidone 1mg BID * Zyprexa 2.5mg BID prn for agitation/anxiety * Discontinue escitalopram given concern for possible manic vs mixed episode Inventory Assets Strengths: supportive relationships, willing to get treatment Needs: safety and stabilization, medication adjustment, additional coping skills, increased outpatient services Suicide Risk Level Suicide Risk Level: Moderate (q15 min suicide checks) (denies SI but with disorganized/bizarre behaviors and at times endorses depression but feels safe in the hospital, able to safety contract and agrees to let nursing/staff know should they develop plan, intent or feel unable ) Suicide Risk Level Comments: . 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 Chief Complaint "[]". Review of Systems Sleep Information Total Hours of Sleep: 3.5 Sleep Comments: Received Vistaril 50mg for insomnia and Vistaril 25 mg for sleep Meal Information Percent Meal Consumed - Breakfast: 100 Percent Meal Consumed - Lunch: 100 Percent Meal Consumed - Dinner: 100 Subjective Subjective Patient was seen & assessed and interval progress reviewed with treatment team Physical Exam Psychiatric Orientation: alert, oriented to person, oriented to place, oriented to time and + guarded Apperance: appropriately dressed and appropriately groomed Eye Contact: + fair eye contact Motor Behavior: no abnormal motor movements Speech: normal rate/rhythm/volume of speech (monotone) Affect: euthymic affect Mood: + anxious mood and + dysphoric mood Thought Process: + circumstantial thought process and + tangential thought process Thought Content: reality based without delusions Suicidal Thoughts: denies suicidal thoughts, denies suicidal plan and denies suicidal intent Homicidal Thoughts: denies homicidal thoughts Hallucinations: no auditory hallucinations (unclear if responding at times) and no visual hallucinations Cognition: recent memory grossly intact, remote memory grossly intact and language grossly intact; + attention not intact Estimated Intelligence: consistent with education level Insight: + limited insight Judgment: + limited judgement Vital Signs (Past 24 Hours) Last Vital Signs Temp 36.7 C 12/09/22 06:40 Pulse 96 H 12/09/22 06:41 Resp 18 12/09/22 06:40 BP 130/94 12/09/22 06:41 Pulse Ox 97 12/08/22 20:39 O2 Del Method Room Air 12/08/22 20:39 Results & Data ([facility]) Current Inpatient Medications Current Inpatient Medications: Current Inpatient Medications Acetaminophen (Acetaminophen 325 Mg Tab) 650 mg PO Q4H PRN PRN Reason: Headache or Minor Fever Stop: 12/30/22 13:48 Al Hydrox/Mg Hydrox/Simethicone (Aluminum/Magnesium Susp 30 Ml Udc) 30 ml PO Q4H PRN PRN Reason: GI Upset Stop: 12/30/22 13:48 Bismuth Subsalicylate (Bismuth Subsalicylate Liqd 236 Ml) 15 ml PO PRN PRN PRN Reason: Loose Stool Stop: 12/30/22 13:48 Chlorpromazine HCl (Chlorpromazine Hcl 100 Mg Tab) 100 mg PO BID CLARIBEL Stop: 01/04/23 12:59 Last Admin: 12/09/22 09:35 Dose: Not Given Chlorpromazine HCl (Chlorpromazine Hcl 25 Mg Tab) 50 mg PO Q4 PRN PRN Reason: psychosis or blaise Stop: 01/04/23 12:48 Last Admin: 12/05/22 21:56 Dose: 50 mg Chlorpromazine HCl (Chlorpromazine Hcl 25 Mg/Ml Amp) 50 mg IM Q4 PRN PRN Reason: psychosis or blaise, if oral form cannot be administered Stop: 01/04/23 12:48 Hydroxyzine HCl (Hydroxyzine Hcl 25 Mg Tab) 25 mg PO Q4H PRN PRN Reason: Anxiety Stop: 12/30/22 13:48 Last Admin: 12/09/22 09:34 Dose: 25 mg Hydroxyzine HCl (Hydroxyzine Hcl 25 Mg Tab) 50 mg PO HSZ PRN PRN Reason: Insomnia Stop: 12/30/22 13:48 Last Admin: 12/08/22 23:24 Dose: 50 mg Magnesium Hydroxide (Magnesium Hydroxide Susp 30 Ml Udc) 30 ml PO DAILY PRN PRN Reason: Constipation Stop: 12/30/22 13:48 Sodium Chloride (Sodium Chloride 0.65% Na Soln 45 Ml ([place])) 1 - 2 sprays NA PRN PRN PRN Reason: Nasal Dryness/Congestion Stop: 12/30/22 13:48 Mental Health & Subst Abuse Tx Psychiatrist Name of Psychiatrist: None Therapist Name of Therapist: None Music Manager Name of Music Manager: None Post Discharge Appointments Primary Care Physician Name Of Family Doctor/PCP: [facility] Primary Care Provider Appointment Comment: please follow up as needed Contact Information Discharge Discharge Address: [address] [place] [address] E&M Selection based on Time Time Spent Minutes Spent on Pre-Visit Items: 9 (multidisciplinary treatment team meeting; review of record, including reading nursing and social work notes; coordination of care) Minutes Spent During Visit: 19 (interview; medication education; supportive psychotherapy using cognitive-behavioral tools including motivational interviewing and addressing cognitive distortions) Minutes Spent Post-Visit: 9 (documentation, communication with relevant members of the treatment team) Total Minutes Spent: 37 (all on the unit, over 50% in counseling & coordination of care) (2) Psychosis Psychosis type: unspecified psychosis type Qualified Code(s): F29 - Unspecified psychosis not due to a substance or known physiological condition
[2022-12-10] MEDS: hydrOXYzine HCl 25 MG TAB PO PRN (02:56)
--- NOTE | 2022-12-10 09:27 | Discharge Summary ---
Date of Service December 10, 2022 History of Present Illness Michael was brought to the ED by his due to concerns for increasingly bizarre behavior. A few days he went outside in the middle of the night, naked, and seemed to be talking with someone who wasn't there telling his he was speaking to God. Then yesterday, prior to coming to the ED, he was lying on the floor and told his "I cannot do this anymore" and struggled to engage with providers in the ED, including requiring nursing to change his clothes for him. Yesterday evening after arriving to the U he was paranoid about possible cameras asking if he was being recorded. He then took a peers notebook and started to chew on the paper requiring staff intervention and redirection. He barely ate any of his dinner. He was up most of the night sleeping only about 3 hours and appeared restless. Today he states his mood is "good" but later tells me he is here for depression and identifies he has been "scared and paranoid". Identifies multiple recent stressors including caring for his two young children (he struggles recall their ages but thinks they are 3 and "around 1 year I think") and losses including deaths of two dogs, his grandfather and his brother by suicide. He cannot recall when his brother by suicide but states "yeah probably around there" when asked if this occurred within the last year (collateral information states his brother 8 months ago). He has been taking lexapro daily for depression and anxiety, he thinks this has been helpful but is ok with holding this for now. Has been smoking marijuana every day (he estimates 1-1.25 g per day via vaping) to help him slow down his thoughts so they are "not a constant bombardment". He denies any synthetic cannabis use. He endorses hearing voices but isn't sure if these are external voices versus his internal thoughts. Feels his thoughts/internal voice has been more positive lately which he describes as "looking forward to making my kids breakfast and playing with them". 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 Today remains paranoid about signing ROIs or his treatment plan, expressing discomfort with this due to vague statements about "feeling confined here" but also states he feels "safe and I know you're here to help me". Interestingly collateral in ED notable for him hav ing a sister but tells me today his only sibling is his brother who . Further recent history reviewed and confirmed where possible as documented by ED CM on 11/30/2022: "Per patients , pt has a hx of mild depression/anxiety. He has been prescribed Lexapro for the past year by his PCP. In the past week or two he started making strange comments such as I am having a spiritual awakening, and his behaviors have also been off. Pt does not work and stays home with their children. They have a 3 year old and a one month old baby. 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 She is also going to Nurse Practitioner school. Pts sleep has been poor, he stays awake all night, sleeping maybe an hour here and there. Wednesday night patient woke up in the middle of the night, took off all of his clothes and ran to the front door. He said he heard someone knocking. Pts heard him having a conversation with someone (no one was at the door). Pt came back upstairs and told his it was God at the door and thats who he was talking to. The rest of the weekend he was subdued, slept on and off and wouldnt talk about what happened Wednesday night. This morning pts got up to get ready for school and the baby woke up. She asked the patient to get up and change the baby. She states that he was not able to get himself organized enough to change the baby or care for her. He then started crying, saying I cant do this. He laid down on the bathroom floor and would not get up. His asked him if he wanted to go to the hospital and he said yes. He denied SI/HI. She states that it was very difficult to get him to the car. He kept lying down on the floor. He would not speak. Pt is now lying in the ER bed with his face flat down in the pillow and will not answer many questions. He did state he will sign himself in for inpatient mental health treatment. He had been cooperative since arriving to the ER. His denies that there has been any aggression or anger outbursts. Pts has a significant family history of mental illness, both parents and both siblings have attempted suicide. Pts brother completed suicide 8 months ago. Pt has no hx of SI and denies it currently. He has no hx of inpatient treatment. His reports that he had a mental breakdown approximately a year ago, similar to his current presentation but not as severe. That is when his PCP prescribed Lexapro. He also started seeing a therapist at that time but has not been seeing her for a few months. He currently has no outpatient psychiatric providers. Pt's reports that he uses medical ma rijuana for anxiety. She denies that he uses other drugs and alcohol. He does not smoke cigarettes." Physical Exam Psychiatric Orientation: alert, oriented to person, oriented to place, oriented to time and + guarded; + uncooperative Apperance: appropriately dressed and appropriately groomed Eye Contact: good eye contact and + fair eye contact Motor Behavior: no abnormal motor movements Speech: normal rate/rhythm/volume of speech (monotone) Affect: euthymic affect Mood: + anxious mood and + dysphoric mood Thought Process: + circumstantial thought process, + tangential thought process and + concrete thought process Thought Content: reality based without delusions Suicidal Thoughts: denies suicidal thoughts, denies suicidal plan and denies suicidal intent Homicidal Thoughts: denies homicidal thoughts Hallucinations: no auditory hallucinations (unclear if responding at times) and no visual hallucinations Cognition: recent memory grossly intact, remote memory grossly intact and language grossly intact; + attention not intact Estimated Intelligence: consistent with education level Insight: + limited insight Judgment: + limited judgement Vital Signs (Past 24 Hours) Last Vital Signs Temp 37.0 C 12/10/22 06:31 Pulse 97 H 12/10/22 06:31 Resp 18 12/10/22 06:31 BP 131/85 12/10/22 06:31 Pulse Ox 99 12/09/22 20:52 O2 Del Method Room Air 12/09/22 20:52 See admission H&P and DOD assessment. Principal Diagnosis Bipolar I Disorder, Manic, Severe, with Psychotic Features Psychiatric Data See daily stay summary. In short, safety was maintained but the patient was not cooperative with care. Medication changes included trial of chlorpromazine and they tolerated this well yet complained of dizziness and declined to continue it. A family session was held and safety plan was completed prior to discharge. Day of Discharge Assessment Today the patient voices readiness for discharge. They note improvement in mood and deny thoughts to harm self or others. Thoughts remain organized and they are improved from admission. There is no evidence of psychosis. They agree to take m ediations as prescribed and keep follow-up appointments. They are stable for discharge to outpatient level of care. 12/08/2022: Announced yesterday that he wasn't going to take any more medication and wanted us to supply him with a territory manager general sales so he could "get out of here". Since this took place after he requested and got patient information materials about chlorpromazine, I asked what concerns he had about the medication - he said he had no concerns at all about it, but believes he doesn't need any medication so isn't going to take it. Pt tells me he has spoken with his a couple of times since we met yesterday but that he has not spoken with her about her concerns about his safety. Pt maintained a pleasant and appropriate demeanor with me even when we were clearly disagreeing about treatment. He has not voiced any delusions; that he's experienced a "spiritual awakening" does not represent a delusion and isn't really hyperreligious in that he speaks of this infrequently and does not appear preoccupied with such thoughts. He has tended to pace fairly rapidly, especially in the evenings, but is easily redirected from this and will stop and converse appropriately. Staff do report that yesterday when he was requesting a territory manager general sales and decrying our giving him medication he was on a bit of a rant, but they did not think this warranted administering any PRN medication. As of now, medication (chlorpromazine) is ordered, but he is declining it. PRN is ordered if needed but has not been needed. While I believe the 302 is appropriate based on his presentation prior to admission, I do not believe I could justify prolonging an involuntary stay nor that an attempt to get an order for this would succeed. If he's to be held involuntarily, he is entitled to receive treatment yet doesn't meet criteria for involuntary medication. It appears likely that we will need to discharge him fairly soon while nobody on the treatment team is very comfortable with his leaving on no treatment. It did take a full day before he agreed to take the chlorpromazine recently, so he may well yet change his mind and accept medication again. 12/07/2022: On approach today, pt was pacing the halls, but wall willing to stop to speak with me. He volunteers that he's "been feeling a little better" (thought he still can't really say in what way he's not been feeling well). He says "the dizziness is improving" and he has noted it only on first standing in the morning. Has continued to accept ordered medication since yesterday. No PRN chlorpromazine has been required. There are no apparent new or worse problems. He continues to present as odd and to speak of his "spiritual awakening", but has not voiced any bizarre beliefs. He does not appear to have spoken with his about her concerns. 12/06/2022: Spent much of the night up requesting discharge and this morning was pacing around the unit looking toward the floor. However, on approach later this morning is dozing lightly in bed, greets me appropriately. He tells me he's "a little dizzy" on standing, asks how much longer I think he'll be here. After refusing numerous times, eventually agreed to take chlorpromazine and has had 2 doses. Reviewed that it could cause postural hypotension (as well as dystonia, tardive dyskinesia, impaired glucose metabolism). I recommended pt contact his and ensure that he understands what her concerns have been. Pt was appropriate throughout my interaction with him today. 12/05/2022: Continues to refuse medication most of the time, though he did appear to have slept better last night. Signed a "72-hour" request for discharge last night. has expressed strong concerns about his having said, among other things, that he didn't think she was actually his (but rather someone/something purporting to be her), that he "could see a demon in the eyes" of their baby, and that he's been driving while using cannabis intensively. On approach he is doing yoga poses on the floor by his bed and said he was ready to leave. When I introduced myself, he grabbed a notebook and began writing down all the details on my ID badge and attempting to create a verbatim transcript of the interaction. I told him that this detracted greatly from our actually being able to talk about anything (not least because he was writing very slowly, which seemed more related to marked difficulty following the basic conversation than any trouble writing). He continued to deny any symptoms or history that should be of concern to anyone and to say that he's been meeting God recently. I attempted to speak with pt about his cannabis use, which we've learned has recently involved his using at least hourly. He never addressed this directly, but confabulates that a nurse (who was present) told him he had "delta-8" (THC) in his system. (In fact, the nuse told him that his THC level was very high but did not mention synthetic forms of THC at all). After initially referring to "delta-8" as "synthetic THC", went on to say that he had never heard of it and had no idea that delta-9 THC was the "normal" variety. He became very argumentative about his THC use and insisted it could cause no problems because it's a plant. I attempted to speak with pt about his request for discharge vs.the serious safety concerns raised by his and the fact that the treatment team and I had determined that it was appropriate to seek a Part 302 involuntary admission despite his having ostensibly signed himself in. As soon as I said that some concerns had been raised about some things he's said he announced that he didn't feel safe (with me and the charge nurse) and wanted to have any discussion with all of the other patients present. He then left the room but kept trying to ensure that he was behind me. Later, pt dispatched a female peer to retrieve belongings from his room while he sat in a common area. Pt has been redirected about boundaries several times, including for hugging female peers. He is not willing to discuss any of this with me. While pt is not exhibiting psychomotor agitation or pressured speech, he does appear to have racing thoughts, grandiosity, persecutory beliefs, poor interp ersonal boundaries. He has no insight into why anyone might think he needs treatment or what could be risky about his behavior. 12/04/2022: Refusing medication again with very poor sleep last night. Ongoing delusions that he expressed to his via phone call last night. Very superficical in his interaction with me, not willing to discuss taking medication again/alternative medication options today. Mood elevated and remains consistent with likely blaise. Denies any symptoms from tachycardia. Transition of Care Transition Of Care Record: was reviewed with the patient Advance Directives Advance Directives Information Provided: No Mental Health Advance Directive: No Advance Directives on File: No Living Will: No Power of Bellstand Attendant: No Advance Directives Reason:: Declines as Mental Health Visit. Suicide Risk Level Suicide Risk Level: Low (q15 min observation checks) Suicide Risk Level Comments: . 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) Stable Relationships: Yes Supportive Family: Yes Total Time Total Time Spent: Greater Than 30 Minutes Total Time Includes: Examination of the patient, Discharge Planning, Medication Reconciliation, Communication with other providers and As well as (documentation) Discharge Data Lab Results 11/30/22 11/30/22 11/30/22 07:22 07:40 07:40 WBC 6.80 RBC 5.46 Hgb 16.8 Hct 49.1 MCV 89.9 MCH 30.8 MCHC 34.2 RDW Std Deviation 38.6 RDW Coeff of Kevin 11.8 Plt Count 258 MPV 9.3 L Immature Gran % (Auto) 0.3 Neut % (Auto) 74.9 Lymph % (Auto) 16.6 [place] % (Auto) 7.2 Eos % (Auto) 0.6 Baso % (Auto) 0.4 Neut # (Auto) 5.09 Lymph # (Auto) 1.13 L [place] # (Auto) 0.49 Eos # (Auto) 0.04 Baso # (Auto) 0.03 Immature Gran # (Auto) 0.02 Sodium 137 Potassium 3.7 Chloride 102 Carbon Dioxide 26 Anion Gap 9 BUN 18 Creatinine 0.93 Est Cr Clr Drug Dosing Not Reportable Est GFR ( Amer) 119.4 Est GFR (Non-Af Amer) 103.0 BUN/Creatinine Ratio 19.4 Glucose 140 H Calcium 9.9 Total Bilirubin 1.5 H AST 24 ALT 18 Alkaline Phosphatase 79 Total Protein 7.8 Albumin 4.7 Globulin 3.1 Albumin/Globulin Ratio 1.5 TSH Urine Color Urine Appearance Urine pH Ur Specific [place] Urine Protein Urine Glucose (UA) Urine Ketones Urine Blood Urine Nitrite Urine Bilirubin Urine Urobilinogen Ur Leukocyte Esterase Urine WBC (Auto) Urine RBC (Auto) U Hyaline Cast (Auto) U Epithel Cells (Auto) Urine Bacteria (Auto) Salicylates Urine Opiates Screen Ur Methadone, Qual Acetaminophen Urine Barbiturates Ur Phencyclidine (PCP) U Amphetamin/Meth Scrn MDMA (Ecstasy) Screen U Benzodiazepines Scrn Ur Cocaine Metabolite U Marijuana (THC) Screen U Marijuana THC Carboxy Drug Screen Comment Ethyl Alcohol mg/dL SARS-CoV-2, RNA, NAAT NEGATIVE 11/30/22 11/30/22 11/30/22 07:40 07:40 07:40 WBC RBC Hgb Hct MCV MCH MCHC RDW Std Deviation RDW Coeff of Kevin Plt Count MPV Immature Gran % (Auto) Neut % (Auto) Lymph % (Auto) [place] % (Auto) Eos % (Auto) Baso % (Auto) Neut # (Auto) Lymph # (Auto) [place] # (Auto) Eos # (Auto) Baso # (Auto) Immature Gran # (Auto) Sodium Potassium Chloride Carbon Dioxide Anion Gap BUN Creatinine Est Cr Clr Drug Dosing Est GFR ( Amer) Est GFR (Non-Af Amer) BUN/Creatinine Ratio Glucose Calcium Total Bilirubin AST ALT Alkaline Phosphatase Total Protein Albumin Globulin Albumin/Globulin Ratio TSH 1.188 Urine Color Urine Appearance Urine pH Ur Specific [place] Urine Protein Urine Glucose (UA) Urine Ketones Urine Blood Urine Nitrite Urine Bilirubin Urine Urobilinogen Ur Leukocyte Esterase Urine WBC (Auto) Urine RBC (Auto) U Hyaline Cast (Auto) U Epithel Cells (Auto) Urine Bacteria (Auto) Salicylates < 3.0 L Urine Opiates Screen Ur Methadone, Qual Acetaminophen < 3 L Urine Barbiturates Ur Phencyclidine (PCP) U Amphetamin/Meth Scrn MDMA (Ecstasy) Screen U Benzodiazepines Scrn Ur Cocaine Metabolite U Marijuana (THC) Screen U Marijuana THC Carboxy Drug Screen Comment Ethyl Alcohol mg/dL < 10.0 SARS-CoV-2, RNA, NAAT 0311/30/22 11/30/22 08:28 08:28 08:28 WBC RBC Hgb Hct MCV MCH MCHC RDW Std Deviation RDW Coeff of Kevin Plt Count MPV Immature Gran % (Auto) Neut % (Auto) Lymph % (Auto) [place] % (Auto) Eos % (Auto) Baso % (Auto) Neut # (Auto) Lymph # (Auto) [place] # (Auto) Eos # (Auto) Baso # (Auto) Immature Gran # (Auto) Sodium Potassium Chloride Carbon Dioxide Anion Gap BUN Creatinine Est Cr Clr Drug Dosing Est GFR ( Amer) Est GFR (Non-Af Amer) BUN/Creatinine Ratio Glucose Calcium Total Bilirubin AST ALT Alkaline Phosphatase Total Protein Albumin Globulin Albumin/Globulin Ratio TSH Urine Color Dark Yellow Urine Appearance Clear Urine pH 5.5 Ur Specific [place] 1.035 H Urine Protein 1+ H Urine Glucose (UA) Negative Urine Ketones 4+ H Urine Blood Negative Urine Nitrite Negative Urine Bilirubin 1+ H Urine Urobilinogen Negative Ur Leukocyte Esterase Trace H Urine WBC (Auto) 1-5 Urine RBC (Auto) 0-4 U Hyaline Cast (Auto) 5-10 H U Epithel Cells (Auto) 5-10 H Urine Bacteria (Auto) Negative Salicylates Urine Opiates Screen Neg Ur Methadone, Qual Neg Acetaminophen Urine Barbiturates Neg Ur Phencyclidine (PCP) Neg U Amphetamin/Meth Scrn Neg MDMA (Ecstasy) Screen Neg U Benzodiazepines Scrn Neg Ur Cocaine Metabolite Neg U Marijuana (THC) Screen Pos H U Marijuana THC Carboxy 2101 H Drug Screen Comment SEE NOTE Ethyl Alcohol mg/dL SARS-CoV-2, RNA, NAAT Hospital Course (1) Bipolar I disorder, most recent episode manic, severe with psychotic features: (2) Cannabis use with anxiety disorder: Plan 12/09/2022: * encourage use of chlorpromazine 100 mg BID * continue chlorpromazine 50 mg PO/IM Q4 HR PRN psychosis or blaise * will continue to try to engage pt in the milieu * anticipate discharge likely tomorrow * A private room remains medically necessary for the safety of self and others. 12/08/2022: * encourage use of chlorpromazine 100 mg BID * chlorpromazine 50 mg PO/IM Q4 HR PRN psychosis or blaise * will continue to try to engage pt in the milieu * family meeting as soon as this can be arranged * A private room remains medically necessary for the safety of self and others. 12/07/2022: * continue chlorpromazine 100 mg BID and 50 mg PO/IM Q4 HR PRN psychosis or blaise; monitor for postural dizziness * will continue to try to engage pt in the milieu * encourace pt to speak with his about his concerns (since he lacks insight into reasons he's here) * A private room remains medically necessary for the safety of self and others. 12/06/2022: * continue chlorpromazine 100 mg BID and 50 mg PO/IM Q4 HR PRN psychosis or blaise; monitor for postural dizziness * A private room remains medically necessary for the safety of self and others. 12/05/2022: * Pt now has a completed 302 warrant * will discontinue haloperidol, risperidone, and olanzapine in favor of monotherapy with an agent that can be given orally or parenterally and that has the capacity to sedate him if this is required due to dangerous behavior. Olanzapine would be a candidate, but little benefit has been seen with it. For now, will start chlorpromazine 100 mg BID and 50 mg PO/IM Q4 HR PRN psychosis or blaise. * will discontinue lorazepam as no benefit seen * A private room remains medically necessary for the safety of self and others. 12/04/2022: Ongoing motivation interviewing related to encouragement to take medication. Very poor insight. 12/03/2022: Continue current medications and treatment plan. Will attempt fasting lipid panel and glucose when he is better able to tolerate this. 12/02/2022: Start ativan 1mg HS prn insomnia 12/01/2022: The patient was admitted to the [facility] ([facility] mental health unit) on q15 min checks (behavioral with suicide precautions) for safety. The patient will participate in group, recreational, and milieu therapies and will be offered additional individual and family sessions as clinically appropriate. * Risperidone 1mg BID * Zyprexa 2.5mg BID prn for agitation/anxiety * Discontinue escitalopram given concern for possible manic vs mixed episode Mental Health & Subst Abuse Tx Psychiatrist Name of Psychiatrist: [email or web address] Psychiatrist's Time of Appointment with Psychiatrist: please follow up for services as recommended Psychiatric Appointment Comment: [address] [place] [address] Therapist Name of Therapist: Sarai Torres Therapist's Date of Therapist Appointment: 12/10/2022 Time of Therapist Appointment: 5:30pm Therapy Appointment Comment: [place] Castrejon Operations Administrative Assistant Name of Operations Administrative Assistant: None Post Discharge Appointments Primary Care Physician Name Of Family Doctor/PCP: [facility] Eva Araujo Primary [facility] Date of Future Appointment with PCP: 12/16/2022 Time of Appointment with PCP: 1:45pm Provider Appointment Comment: [address] [place] [id number] Contact Information Discharge Discharge Address: [address], [place] [address] Discharge Plan Discharge Items Patient Disposition: Home - Self-Care Reason For Visit: MENTAL HEALTH CRISIS,DIZZINESS,NAUSEA Discharge Diagnosis: Bipolar I Disorder, Manic, Severe, with Psychotic Features Condition on Discharge: Good Activity: Resume your previous activity Non-emergency contact: Primary Care Provider and Psychiatrist Call non-emergency contact if: you have any medication questions and your symptoms worsen Follow-up/Referrals: PCP,NO [Primary Care Provider] - Diet: Regular Addtl Attending Provider Instructions: SPECIAL CARE INSTRUCTIONS: 1. Follow through with your scheduled aftercare appointments. If unable to keep an appointment, please call to reschedule. 2. Take your medication only as prescribed. Medication should not be changed or stopped without the approval of your doctor. In the event of worsening symptoms or concerns about side effects, contact your doctor immediately. 3. Utilize new healthy coping skills, anger management skills, and stress management skills learned during your hospitalization. Journal feelings and process them with a support person. Identify stressors or situations that may result in relapse, deterioration or inappropriate behaviors and develop a plan to deal with those issues. 4. If your coping skills are ineffective and you are in crisis, contact your outpatient providers for direction. If unable to reach your providers, please call the [facility] CRISIS LINE AT , go to the [facility] walk-in center at [address], [address], [place], or go to the closest Emergency Room. 5. Avoid alcohol and un-prescribed drugs. 6. You have been provided with the Mental Health Advance Directives Pamphlet for your review. 7. Your condition is stable for discharge to outpatient level of care, but recovery is an ongoing process. Ifthoughts to harm yourself or others return, follow the safety plan developed during your stay. Planning for a safe return home includes securing weapons. Our treatment team recommends weaponsbe removed from the home until your outpatient provider reassesses your progress. In rare cases where the items themselvescannot be removed, guns and ammunitionshould be secured separatelyand keys stored by a reliable personoutside of the home. If you were admitted on an involuntary commitment, the police or other legal authorities may be involved in this process. AFTERCARE APPOINTMENTS: * Please call your insurance company prior to your scheduled appointment to confirm your aftercare providers are covered. Take your insurance information to your appointments. WHO TO CALL AND WHEN: Medical Emergencies: For questions or emergencies related to your hospital stay, please contact the Inpatient Behavioral Health Unit at [phone]. A key worker is on-call 19/04 for the Behavioral Health Unit for emergencies At any time you feel your situation is an emergency, you may also call 911 immediately. Pending Studies at Discharge: No Stand-Alone Forms: [facility] [employer], Smoking Cessation Medications and DC Order Prescriptions: New hydroxyzine HCl 25 mg Tablet 25 mg PO Q4H PRN (Reason: Anxiety) 30 Days Qty: 60 0RF Discontinued escitalopram oxalate [Lexapro] 10 mg tablet 20 mg PO DAILY Discharge Orders: Discharge Order (Routine); Ordered 12/10/22 Ordered By: Gabe Blunt Admission Data Admit Date/Time: 11/30/22 13:02 Attending Provider: Sharon Bowen Admit Provider: Sharon Bowen Primary Care Provider: PCP,MARIA T Coding Level of Care Code 51818 D/C day mgmt > 30 min Diagnoses Bipolar I disorder, most recent episode manic, severe with psychotic features F31.2 Cannabis use with anxiety disorder F12.980 Time Spent (min) 33
== END 2022-12-10 11:06 | disposition home or self-care (01) | DRG 885 ==
LOC: ED 07:04 → 3S 13:02

== ENCOUNTER 2023-02-10 21:15 | Inpatient (IN) ==
--- NOTE | 2023-02-10 21:41 | Emergency Department Note ---
Impression & Plan Suicidal ideation, Bipolar 1 disorder ED Provider Note NAME: SHREYAS BROWN AGE: 38 SEX: M : 1985 ARRIVES VIA: Walk-In INFORMANT: [Patient][] ED PROVIDER(S): [Ramirez Leon MD] CHIEF COMPLAINT: Mental health evaluation HISTORY OF PRESENT ILLNESS: The patient is a 38-year-old male who was recently diagnosed with bipolar disease. He was in our hospital, [facility], 2 months ago for psychosis and blaise. He did not leave on any medications. In the last few weeks, he has felt d epressed and scared. He states his and he are going through divorce, he has a hard time getting up in the morning to get the day started, he is coming up on the anniversary of his brothers suicide. The patient's is afraid for her to be at home by himself. He states that he thinks he now needs to be on medications and realizes he does truly have a mental health disorder. The patient does have an appointment with psychiatry next week but he does not think he can wait that long. Patient has been feeling suicidal last week, but has no current plan to harm himself. No history of previous suicide attempt. PMHx/PSHx: See Below SOCIAL HISTORY: See Below. PHYSICAL EXAM: GENERAL: Patient is in no acute distress. HEENT: No acute trauma, normocephalic atraumatic, mucous membranes moist, no nasal congestion. NECK: No stridor, no adenopathy, no meningismus, trachea is midline. LUNGS: Clear to auscultation bilaterally, no wheeze, no rhonchi, breath sounds equal. HEART: Without murmurs gallops or rubs, regular rate and rhythm. ABDOMEN: Soft, nontender, bowel sounds positive, no peritonitis. EXTREMITIES: No cyanosis or edema, full range of motion of all the joints without pain or difficulty, no signs for acute trauma. NEUROLOGIC: Oriented x 3, no acute motor or sensory deficits, no focal weakness. SKIN: No rash, no jaundice, no diaphoresis. Psychiatric: Cooperative, flat affect. Admits to suicidal ideation with no active plan. Voluntary. DIFFERENTIAL DIAGNOSIS: Psychosis, bipolar disease, depression, suicidality, anxiety, electrolyte imbalance, infection, among others. EMERGENCY DEPARTMENT COURSE/PROCEDURES: Prior/Outside records reviewed: Recent psychiatry notes and recent discharge note. MEDICAL DECISION MAKING: There is no leukocytosis or concerning anemia. There is a normal platelet count. No renal failure or significant electrolyte abnormality. No concerning liver enzyme elevation. The patient appeared to be in a euthyroid state. Urinalysis did not show findings of infection. Aspirin, Tylenol and alcohol levels were undetectable. Urine tox was positive for marijuana. COVID test returned negative. The patient presents with some suicidal ideation and feelings of being unsafe at home. He was recently diagnosed with bipolar disease. He was asking for inpatient psychiatric care/hospitalization. The patient was felt medically clear. He was voluntary. He was seen by psychiatry case management. The patient has been referred to our [facility] floor, 3 S. At this time, the patient's disposition is still pending, the case has been assumed Dr. Giles at the change of shift. DISPOSITION: Currently still a patient in the ED. Past Med/Surg History Medical History Bipolar 1 disorder with moderate blaise Chondrodermatitis nodularis chronica helicis Condyloma Encounter for pre-operative examination Encounter for vasectomy Vasectomy evaluation Surgical History H/O wisdom tooth extraction History of ear surgery excisional biopsy of left earlobe cyst-08/09/19-Dr Mcdonough Family History Father Family history of diabetes mellitus in father Stroke Grandmother No problems noted. Grandfather Family history of diabetes mellitus in father Other No family history of adverse response to anesthesia No family history of bleeding disorder Social History Smoking Status: Never smoker packs per day: 1; Second Hand Exposure: Yes; Do You Dip or Chew Tobacco: No; Hx Alcohol Use: No Hx Substance Use: No Preferred Language: Spanish Communication Ability: Effective Hearing Ability: Normal Coffee Supervisor Required: No Beliefs That Will Affect Care: None marital status: Current Living Situation: Spouse current occupational status: unemployed Feels Safe at Home: Yes Gender Identity: Male Assistive Devices: None Allergies Allergies Allergy/AdvReac Type Severity Reaction Status Date / Time No Known Drug Allergies Allergy Verified 12/01/22 10:26 Home Meds Home Medications Medication Instructions Recorded Confirmed escitalopram oxalate 20 mg tablet 20 mg PO DAILY 02/10/23 02/10/23 hydroxyzine HCl 25 mg tablet 25 mg PO Q4 PRN Anxiety 02/10/23 02/10/23 Results & Data (ED) Vital Signs Vital Signs - 24 hr 02/10/23 21:17 02/10/23 21:52 Temperature 36.2 C L Temperature Source Temporal Artery Scan Pulse Rate 63 Respiratory Rate 16 Respiratory Effort / Characteristics Non-Labored Non-Labored Respiratory Depth Normal Blood Pressure 113/75 Blood Pressure Mean 87 Pulse Oximetry 97 Oxygen Delivery Method Room Air Room Air Sepsis Recent Fever Within 48 Hours No Sepsis New/Unexplained Change in Mental Status N/A Sepsis Action Taken by Nursing No Action Required Home Medications Current Medication List: was personally reviewed by me Laboratory Data Attestation: I reviewed the patient's lab results. 02/10/23 21:45 02/10/23 21:45 Lab Results 02/10/23 02/10/23 02/10/23 Range/Units 21:45 21:45 21:45 WBC 6.37 (4.8-10.8) K/ul RBC 4.97 (4.70-6.10) M/uL Hgb 15.3 (14.0-18.0) g/dl Hct 45.2 (42.0-52.0) % MCV 90.9 (80.0-100.0) fL MCH 30.8 (25.0-34.0) pg MCHC 33.8 (32.0-36.0) g/dL RDW Std Deviation 39.4 (36.4-46.3) fL RDW Coeff of Kevin 11.9 (11.5-14.5) % Plt Count 213 (130-400) K/uL MPV 9.4 (9.4-12.4) fL Immature Gran % (Auto) 0.2 % Neut % (Auto) 67.7 % Lymph % (Auto) 23.4 % [place] % (Auto) 6.8 % Eos % (Auto) 1.6 % Baso % (Auto) 0.3 % Neut # (Auto) 4.32 (1.40-6.50) K/uL Lymph # (Auto) 1.49 (1.2-3.4) K/uL [place] # (Auto) 0.43 (0.11-0.59) K/uL Eos # (Auto) 0.10 (0-0.50) K/uL Baso # (Auto) 0.02 (0-0.2) K/uL Immature Gran # (Auto) 0.01 (0.01-0.20) K/uL Sodium 140 (136-145) mmol/L Potassium 3.5 (3.5-5.1) mmol/L Chloride 104 (98-107) mmol/L Carbon Dioxide 31 (21-32) mmol/L Anion Gap 5 (3-11) BUN 21 (6-23) mg/dl Creatinine 0.88 (0.6-1.4) mg/dl Est Cr Clr Drug Dosing 98.8 ml/min Est GFR ( Amer) 124.5 ml/min Est GFR (Non-Af Amer) 107.5 ml/min BUN/Creatinine Ratio 23.9 H (10-20) Glucose 93 (70-99(Fasting)) mg/dl Calcium 9.1 (8.6-10.3) mg/dl Total Bilirubin 0.6 (0.2-1.0) mg/dl AST 14 (13-39) U/L ALT 18 (7-52) U/L Alkaline Phosphatase 61 (34-104) U/L Total Protein 6.7 (6.0-8.3) gm/dl Albumin 4.3 (3.4-5.0) gm/dl Globulin 2.4 L (2.5-4.0) gm/dl Albumin/Globulin Ratio 1.8 (0.9-2) TSH 2.298 (0.300-4.500) uIu/ml Urine Color Urine Appearance (Clear) Urine pH (4.5-7.5) Ur Specific [place] (1.000-1.030) Urine Protein (Negative) Urine Glucose (UA) (Negative) Urine Ketones (Negative) Urine Blood (Negative) Urine Nitrite (Negative) Urine Bilirubin (Negative) Urine Urobilinogen (Negative) Ur Leukocyte Esterase (Negative) Salicylates (3.0-30) mg/dl Urine Opiates Screen (Neg) Ur Methadone, Qual (Neg) Acetaminophen (10-30) ug/ml Urine Barbiturates (Neg) Ur Phencyclidine (PCP) (Neg) U Amphetamin/Meth Scrn (Neg) MDMA (Ecstasy) Screen (Neg) U Benzodiazepines Scrn (Neg) Ur Cocaine Metabolite (Neg) U Marijuana (THC) Screen (Neg) Ethyl Alcohol mg/dL (<10.0) mg/dl SARS-CoV-2, RNA, NAAT (NEGATIVE) 02/10/23 02/10/23 02/10/23 Range/Units 21:45 21:45 21:45 WBC (4.8-10.8) K/ul RBC (4.70-6.10) M/uL Hgb (14.0-18.0) g/dl Hct (42.0-52.0) % MCV (80.0-100.0) fL MCH (25.0-34.0) pg MCHC (32.0-36.0) g/dL RDW Std Deviation (36.4-46.3) fL RDW Coeff of Kevin (11.5-14.5) % Plt Count (130-400) K/uL MPV (9.4-12.4) fL Immature Gran % (Auto) % Neut % (Auto) % Lymph % (Auto) % [place] % (Auto) % Eos % (Auto) % Baso % (Auto) % Neut # (Auto) (1.40-6.50) K/uL Lymph # (Auto) (1.2-3.4) K/uL [place] # (Auto) (0.11-0.59) K/uL Eos # (Auto) (0-0.50) K/uL Baso # (Auto) (0-0.2) K/uL Immature Gran # (Auto) (0.01-0.20) K/uL Sodium (136-145) mmol/L Potassium (3.5-5.1) mmol/L Chloride (98-107) mmol/L Carbon Dioxide (21-32) mmol/L Anion Gap (3-11) BUN (6-23) mg/dl Creatinine (0.6-1.4) mg/dl Est Cr Clr Drug Dosing ml/min Est GFR ( Amer) ml/min Est GFR (Non-Af Amer) ml/min BUN/Creatinine Ratio (10-20) Glucose (70-99(Fasting)) mg/dl Calcium (8.6-10.3) mg/dl Total Bilirubin (0.2-1.0) mg/dl AST (13-39) U/L ALT (7-52) U/L Alkaline Phosphatase (34-104) U/L Total Protein (6.0-8.3) gm/dl Albumin (3.4-5.0) gm/dl Globulin (2.5-4.0) gm/dl Albumin/Globulin Ratio (0.9-2) TSH (0.300-4.500) uIu/ml Urine Color Yellow Urine Appearance Clear (Clear) Urine pH 5.5 (4.5-7.5) Ur Specific [place] 1.033 H (1.000-1.030) Urine Protein Negative (Negative) Urine Glucose (UA) Negative (Negative) Urine Ketones Negative (Negative) Urine Blood Negative (Negative) Urine Nitrite Negative (Negative) Urine Bilirubin Negative (Negative) Urine Urobilinogen Negative (Negative) Ur Leukocyte Esterase Negative (Negative) Salicylates < 3.0 L (3.0-30) mg/dl Urine Opiates Screen (Neg) Ur Methadone, Qual (Neg) Acetaminophen < 3 L (10-30) ug/ml Urine Barbiturates (Neg) Ur Phencyclidine (PCP) (Neg) U Amphetamin/Meth Scrn (Neg) MDMA (Ecstasy) Screen (Neg) U Benzodiazepines Scrn (Neg) Ur Cocaine Metabolite (Neg) U Marijuana (THC) Screen (Neg) Ethyl Alcohol mg/dL < 10.0 (<10.0) mg/dl SARS-CoV-2, RNA, NAAT (NEGATIVE) 02/10/23 02/10/23 Range/Units 21:45 21:45 WBC (4.8-10.8) K/ul RBC (4.70-6.10) M/uL Hgb (14.0-18.0) g/dl Hct (42.0-52.0) % MCV (80.0-100.0) fL MCH (25.0-34.0) pg MCHC (32.0-36.0) g/dL RDW Std Deviation (36.4-46.3) fL RDW Coeff of Kevin (11.5-14.5) % Plt Count (130-400) K/uL MPV (9.4-12.4) fL Immature Gran % (Auto) % Neut % (Auto) % Lymph % (Auto) % [place] % (Auto) % Eos % (Auto) % Baso % (Auto) % Neut # (Auto) (1.40-6.50) K/uL Lymph # (Auto) (1.2-3.4) K/uL [place] # (Auto) (0.11-0.59) K/uL Eos # (Auto) (0-0.50) K/uL Baso # (Auto) (0-0.2) K/uL Immature Gran # (Auto) (0.01-0.20) K/uL Sodium (136-145) mmol/L Potassium (3.5-5.1) mmol/L Chloride (98-107) mmol/L Carbon Dioxide (21-32) mmol/L Anion Gap (3-11) BUN (6-23) mg/dl Creatinine (0.6-1.4) mg/dl Est Cr Clr Drug Dosing ml/min Est GFR ( Amer) ml/min Est GFR (Non-Af Amer) ml/min BUN/Creatinine Ratio (10-20) Glucose (70-99(Fasting)) mg/dl Calcium (8.6-10.3) mg/dl Total Bilirubin (0.2-1.0) mg/dl AST (13-39) U/L ALT (7-52) U/L Alkaline Phosphatase (34-104) U/L Total Protein (6.0-8.3) gm/dl Albumin (3.4-5.0) gm/dl Globulin (2.5-4.0) gm/dl Albumin/Globulin Ratio (0.9-2) TSH (0.300-4.500) uIu/ml Urine Color Urine Appearance (Clear) Urine pH (4.5-7.5) Ur Specific [place] (1.000-1.030) Urine Protein (Negative) Urine Glucose (UA) (Negative) Urine Ketones (Negative) Urine Blood (Negative) Urine Nitrite (Negative) Urine Bilirubin (Negative) Urine Urobilinogen (Negative) Ur Leukocyte Esterase (Negative) Salicylates (3.0-30) mg/dl Urine Opiates Screen Neg (Neg) Ur Methadone, Qual Neg (Neg) Acetaminophen (10-30) ug/ml Urine Barbiturates Neg (Neg) Ur Phencyclidine (PCP) Neg (Neg) U Amphetamin/Meth Scrn Neg (Neg) MDMA (Ecstasy) Screen Neg (Neg) U Benzodiazepines Scrn Neg (Neg) Ur Cocaine Metabolite Neg (Neg) U Marijuana (THC) Screen Pos H (Neg) Ethyl Alcohol mg/dL (<10.0) mg/dl SARS-CoV-2, RNA, NAAT NEGATIVE (NEGATIVE) Discharge Plan Visit Data Chief Complaint: Mental Health Evaluation Stated Complaint: [facility] ED Provider: Ramirez Leon Discharge Problem: Suicidal ideation, Bipolar 1 disorder Patient Disposition: Still a Patient Condition: Good Forms Stand Alone Forms: [facility], Suicide Prevention Resources Prescriptions Prescriptions: No Action hydroxyzine HCl 25 mg tablet 25 mg PO Q4 PRN (Reason: Anxiety) escitalopram oxalate 20 mg tablet 20 mg PO DAILY Referrals Referrals: PCP,NO [Physician] -
[2023-02-10 22:04] LABS: Basophils # (auto) 0.02 K/uL (0-0.2); Basophils % (auto) 0.3 %; Eosinophils % (auto) 1.6 %; Hematocrit (blood only) 45.2 % (42.0-52.0); Hemoglobin 15.3 g/dl (14.0-18.0); Immature Granulocytes # (auto) 0.01 K/uL (0.01-0.20); Immature Granulocytes % (auto) 0.2 %; Lymphocytes # (auto) 1.49 K/uL (1.2-3.4); Lymphocytes % (auto) 23.4 %; Mean Corpuscular Hemoglobin 30.8 pg (25.0-34.0); Mean Corpuscular Hgb Conc 33.8 g/dL (32.0-36.0); Mean Corpuscular Volume 90.9 fL (80.0-100.0); Mean Platelet Volume 9.4 fL (9.4-12.4); Monocytes # (auto) 0.43 K/uL (0.11-0.59); Monocytes % (auto) 6.8 %; Neutrophils # (auto) 4.32 K/uL (1.40-6.50); Neutrophils % (auto) 67.7 %; Platelet Count 213 K/uL (130-400); RDW Coefficient of Variation 11.9 % (11.5-14.5); RDW Standard Deviation 39.4 fL (36.4-46.3); Red Blood Count 4.97 M/uL (4.70-6.10); White Blood Count 6.37 K/ul (4.8-10.8)
[2023-02-10 22:09] LABS: Appearance Urine Clear (Clear); Bilirubin Urine Negative (Negative); Blood Urine Negative (Negative); Color Urine Yellow; Glucose Urine UA Negative (Negative); Ketones Urine Negative (Negative); Leukocyte Esterase Urine Negative (Negative); Nitrite Urine Negative (Negative); Protein Urine Negative (Negative); Specific Gravity Urine 1.033 (1.000-1.030); Urobilinogen Urine Negative (Negative); pH Urine 5.5 (4.5-7.5)
[2023-02-10 22:16] LABS: Albumin Globulin Ratio 1.8 (0.9-2); Albumin Level 4.3 gm/dl (3.4-5.0); BUN Creatinine Ratio 23.9 (10-20); Bilirubin,Total 0.6 mg/dl (0.2-1.0); Calcium 9.1 mg/dl (8.6-10.3); Creatinine Clr Calc Pharmacy 98.8 ml/min; Est GFR (African American) 124.5 ml/min; Est GFR (Non-African American) 107.5 ml/min; Globulin 2.4 gm/dl (2.5-4.0); Potassium 3.5 mmol/L (3.5-5.1); Total Protein 6.7 gm/dl (6.0-8.3)
[2023-02-10 22:24] LABS: Acetaminophen < 3 ug/ml (10-30); Salicylate < 3.0 mg/dl (3.0-30)
[2023-02-10 22:40] LABS: Amphetamines+Metham, Urine Neg (Neg); Barbiturates, Urine Neg (Neg); Benzodiazepine, Urine Neg (Neg); Cocaine, Urine Neg (Neg); MDMA (Ecstacy), Urine Neg (Neg); Methadone, Urine Neg (Neg); Opiate, Urine Neg (Neg); Phencyclidine, Urine Neg (Neg)
--- NOTE | 2023-02-11 02:02 | Emergency Department Note ---
ED Visit Note Date and Time: 02/11/2023 0135 Interval History: Sign out received from Dr. Leon who reviewed details of the encounter. Patient was pending inpatient admission on a 201. Patient was evaluated by the ED psychiatric bilingual case manager. 3 S. staff have also evaluated the patient for bed placement Disposition: The patient has been accepted on 3 S. as a voluntary admission .
[2023-02-11] MEDS ORDERED: MAGNESIUM HYDROXIDE SUSP 30 ML UDC PO PRN (06:35)
[2023-02-11] MEDS ORDERED: ALUMINUM/MAGNESIUM SUSP 30 ML UDC PO PRN (06:35)
[2023-02-11] MEDS ORDERED: SODIUM CHLORIDE 0.65% NA SOLN 45 ML (OCEAN) PRN (06:35)
[2023-02-11] MEDS ORDERED: BISMUTH SUBSALICYLATE LIQD 236 ML PO PRN (06:35)
[2023-02-11] MEDS ORDERED: ACETAMINOPHEN 325 MG TAB PO PRN (06:35)
[2023-02-11] MEDS ORDERED: hydrOXYzine HCl 25 MG TAB PO PRN (06:35)
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
[2023-02-11] MEDS: hydrOXYzine HCl 25 MG TAB PO PRN (21:24)
--- NOTE | 2023-02-12 14:11 | Psychiatric Progress Note ---
Date of Service February 12, 2023 Impression / Recommendations Impression 38 yo man with a history of ADHD, bipolar affective disorder type I, anxiety who was admitted for worsening depression, SI, and felt unable to remain safe outside of a secure setting in the context of pending divorce and coming to terms with his recent episode of blaise/psychosis. Diagnostically consistent with BPAD current depressive episode as well as unspecified anxiety. He is deemed in need of psychiatric hospitalization for diagnostic clarification, safety and stabilization, medication management and development of further coping skills. MNPR due to periods of increased restlessness and seeming agitation /irritability, unable to tolerate a roommate 02/12/2023: Ongoing depression and periods of increased psychomotor activation and appears very restless and anxious at times. Discussed medication treatment options in detail for mood stabilization and bipolar depression including lithium, Depakote, antipsychotic medications. Discussed risks, benefits and alternatives. Patient would like to start and consented to [place] for bipolar disorder. Reviewed side effects and educated on risks of dehydration, renal effects, thyroid effects, cardiac effects, drug interactions (NSAIDs, ACEIs, angiotensin receptor antagonists) which he stated understanding of and was comfortable starting [place]. Baseline labs of thyroid function, kidney function, weight, electrolytes, CBC, and UA were preformed and within normal limits. (1) Bipolar 1 disorder, depressed, severe: (2) Suicidal ideation: Plan 02/12/2023: Starting [place] SR 300mg BID 02/11/2023:The patient was admitted to the [facility] ([facility] unit) on q15 min checks (behavioral with suicide precautions) for safety. The patient will participate in group, recreational, and milieu therapies and will be offered additional individual and family sessions as clinically appropriate. -Considering mood stabilizer options Inventory Assets Strengths: supportive relationships, willing to get treatment Needs: safety and stabilization, medication adjustment, additional coping skills Suicide Risk Level Suicide Risk Level: High-Moderate (q15 min suicide checks) (severe depression with SI with plan prior to admission but feels safe in the hospital, able to safety contract and agrees to let nursing/staff know should they develop plan, intent or feel unable to remain safe. ) Risk Factors Assessment Male: Yes : Yes Do You Have Access To A Gun?: No Mental Health Diagnoses: Yes Previous Attempt: No Family History of Suicide: Yes Previous Psychiatric Hospitalization: Yes Hopelessness: Yes Protective Factors Assessment Responsible for Young Children: Yes Employed: No Stable Relationships: Yes Supportive Family: Yes Interval History Identifying Information SHREYAS BROWN is a 38-year-old M who currently lives alone in [place], has a history of ADHD, bipolar affective disorder type I, anxiety and was admitted on 02/11/23 04:52 on a 201 voluntary commitment for worsening depression, SI, and felt unable to remain safe outside of a secure setting. Chief Complaint "I feel like I'm watching my life fall apart and trying to think about how I'll ever put it back together". Review of Systems Sleep Information Total Hours of Sleep: 6.25 Sleep Comments: Meal Information Percent Meal Consumed - Breakfast: 100 Percent Meal Consumed - Lunch: 100 Percent Meal Consumed - Dinner: 100 Subjective Subjective Patient was seen & assessed and interval progress reviewed with treatment team nursing and social work. Appeared more irritable and anxious this morning, pacing in the halls. Able to participate in groups. Considered mood stabilizer options and wants to start [place]. Worries that this won't be enough to help his mood stating he feels "scared". Has been attending groups and had a good visit with his mom last night. Physical Exam Psychiatric Orientation: alert and oriented x 3 Apperance: appropriately dressed and appropriately groomed Eye Contact: good eye contact Motor Behavior: + psychomotor agitation (some this morning) Speech: normal rate/rhythm/volume of speech Affect: + depressed affect and + anxious affect Mood: + depressed mood and + anxious mood Thought Process: goal directed thought process Thought Content: reality based without delusions Suicidal Thoughts: denies suicidal plan (feels safe in the hospital) and denies suicidal intent; + reports suicidal thoughts (intermittent thoughts ) Homicidal Thoughts: denies homicidal thoughts Hallucinations: no auditory hallucinations and no visual hallucinations Cognition: recent memory grossly intact, remote memory grossly intact, attention grossly intact and language grossly intact Estimated Intelligence: consistent with education level Insight: + fair insight Judgment: + limited judgement Vital Signs (Past 24 Hours) Last Vital Signs Temp 37 C 02/12/23 06:37 Pulse 74 02/12/23 06:37 Resp 16 02/12/23 06:37 BP 114/74 02/12/23 06:37 Pulse Ox 100 02/11/23 05:50 O2 Del Method Room Air 02/11/23 05:50 Results & Data ([facility]) Current Inpatient Medications Current Inpatient Medications: Current Inpatient Medications Acetaminophen (Acetaminophen 325 Mg Tab) 650 mg PO Q4H PRN PRN Reason: Headache or Minor Fever Stop: 03/13/23 06:34 Al Hydrox/Mg Hydrox/Simethicone (Aluminum/Magnesium Susp 30 Ml Udc) 30 ml PO Q4H PRN PRN Reason: GI Upset Stop: 03/13/23 06:34 Bismuth Subsalicylate (Bismuth Subsalicylate Liqd 236 Ml) 15 ml PO PRN PRN PRN Reason: Loose Stool Stop: 03/13/23 06:34 Hydroxyzine HCl (Hydroxyzine Hcl 25 Mg Tab) 50 mg PO HSZ PRN PRN Reason: Insomnia Stop: 03/13/23 06:34 Hydroxyzine HCl (Hydroxyzine Hcl 25 Mg Tab) 25 mg PO Q4H PRN PRN Reason: Anxiety Stop: 03/13/23 06:34 Last Admin: 02/11/23 21:24 Dose: 25 mg Magnesium Hydroxide (Magnesium Hydroxide Susp 30 Ml Udc) 30 ml PO DAILY PRN PRN Reason: Constipation Stop: 03/13/23 06:34 Sodium Chloride (Sodium Chloride 0.65% Na Soln 45 Ml ([place])) 1 - 2 sprays NA PRN PRN PRN Reason: Nasal Dryness/Congestion Stop: 03/13/23 06:34 Mental Health & Subst Abuse Tx Psychiatrist Name of Psychiatrist: Mary kessler Psychiatrist's Date Of Appointment With Psychiatric Provider: 02/18/2023 Time of Appointment with Psychiatrist: 1pm Psychiatric Appointment Comment: [address], [place], [place] Therapist Name of Therapist: Mary Contreras Therapist's Date of Therapist Appointment: 02/16/2023 Time of Therapist Appointment: 11am Therapy Appointment Comment: [address], [place], [place] Post Discharge Appointments Primary Care Physician Name Of Family Doctor/PCP: [facility] Time of Appointment with PCP: please follow up as needed
[2023-02-12] MEDS: hydrOXYzine HCl 25 MG TAB PO PRN (21:17)
[2023-02-12] MEDS: LITHIUM CARBONATE SLOW REL 300 MG TAB PO SCH (21:17)
[2023-02-13] MEDS: LITHIUM CARBONATE SLOW REL 300 MG TAB PO SCH ×2 (08:37→21:01)
[2023-02-13 12:23] LABS: Marijuana Quant, GCMS Urine 75 ng/mL (<5)
--- NOTE | 2023-02-13 16:10 | Psychiatric Progress Note ---
Date of Service February 13, 2023 Impression / Recommendations Impression 38 yo man with a history of ADHD, bipolar affective disorder type I, anxiety who was admitted for worsening depression, SI, and felt unable to remain safe outside of a secure setting in the context of pending divorce and coming to terms with his recent episode of blaise/psychosis. Diagnostically consistent with BPAD current depressive episode as well as unspecified anxiety. He is deemed in need of psychiatric hospitalization for diagnostic clarification, safety and stabilization, medication management and development of further coping skills. MNPR due to periods of increased restlessness and seeming agitation /irritability, unable to tolerate a roommate 02/13/2023: Ongoing depression and periods of increased psychomotor activation and appears very restless and anxious at times but tolerating initial two doses of [place]. (1) Bipolar 1 disorder, depressed, severe: (2) Suicidal ideation: Plan 02/13/2023: Continue [place] SR 300mg BID 02/12/2023: Starting [place] SR 300mg BID 02/11/2023:The patient was admitted to the [facility] ([facility]) on q15 min checks (behavioral with suicide precautions) for safety. The patient will participate in group, recreational, and milieu therapies and will be offered additional individual and family sessions as clinically appropriate. -Considering mood stabilizer options Inventory Assets Strengths: supportive relationships, willing to get treatment Needs: safety and stabilization, medication adjustment, additional coping skills Suicide Risk Level Suicide Risk Level: High-Moderate (q15 min suicide checks) (severe depression with SI with plan prior to admission but feels safe in the hospital, able to safety contract and agrees to let nursing/staff know should they develop plan, intent or feel unable to remain safe. ) Risk Factors Assessment Male: Yes : Yes Do You Have Access To A Gun?: No Mental Health Diagnoses: Yes Previous Attempt: No Family History of Suicide: Yes Previous Psychiatric Hospitalization: Yes Hopelessness: Yes Protective Factors Assessment Responsible for Young Children: Yes Employed: No Stable Relationships: Yes Supportive Family: Yes Interval History Identifying Information SHREYAS BROWN is a 38-year-old M who currently lives alone in [place], has a history of ADHD, bipolar affective disorder type I, anxiety and was admitted on 02/11/23 04:52 on a 201 voluntary commitment for worsening depression, SI, and felt unable to remain safe outside of a secure setting. Chief Complaint "I'm not as flooded with thoughts". Review of Systems Sleep Information Total Hours of Sleep: 6.5 Meal Information Percent Meal Consumed - Breakfast: 100 Percent Meal Consumed - Lunch: 75 Percent Meal Consumed - Dinner: 100 Subjective Subjective Patient was seen & assessed and interval progress reviewed with treatment team nursing and social work. Attending groups. Did not experience any major side effects with first two doses of lithium though when asked about GI symptoms states his stomach may be "turning a little but nothing bad" and eating well and no changes in bowel movements. Feels his anxious thoughts are lessening a bit. Slept well overnight. Still with depression but finding groups helpful and glad that lithium will likely offer faster benefit than with SSRIs in the past. Physical Exam Psychiatric Orientation: alert and oriented x 3 Apperance: appropriately dressed and appropriately groomed Eye Contact: good eye contact Motor Behavior: no abnormal motor movements Speech: normal rate/rhythm/volume of speech Affect: + depressed affect and + anxious affect Mood: + depressed mood and + anxious mood Thought Process: goal directed thought process Thought Content: + paranoid (possible mild paranoia based on conversations he had with other [facility] staff) and reality based without delusions Suicidal Thoughts: denies suicidal plan (feels safe in the hospital) and denies suicidal intent; + reports suicidal thoughts (intermittent thoughts ) Homicidal Thoughts: denies homicidal thoughts Hallucinations: no auditory hallucinations and no visual hallucinations Cognition: recent memory grossly intact, remote memory grossly intact, attention grossly intact and language grossly intact Estimated Intelligence: consistent with education level Insight: + fair insight Judgment: + limited judgement Vital Signs (Past 24 Hours) Last Vital Signs Temp 36.9 C 02/13/23 06:41 Pulse 71 02/13/23 06:41 Resp 16 02/13/23 06:41 BP 122/74 02/13/23 06:41 Pulse Ox 100 02/11/23 05:50 O2 Del Method Room Air 02/11/23 05:50 Results & Data ([facility]) Laboratory Results Laboratory Results - last 24 hr 02/10/23 21:45 U Marijuana THC Carboxy 75 H Drug Screen Comment SEE NOTE Current Inpatient Medications Current Inpatient Medications: Current Inpatient Medications Acetaminophen (Acetaminophen 325 Mg Tab) 650 mg PO Q4H PRN PRN Reason: Headache or Minor Fever Stop: 03/13/23 06:34 Al Hydrox/Mg Hydrox/Simethicone (Aluminum/Magnesium Susp 30 Ml Udc) 30 ml PO Q4H PRN PRN Reason: GI Upset Stop: 03/13/23 06:34 Bismuth Subsalicylate (Bismuth Subsalicylate Liqd 236 Ml) 15 ml PO PRN PRN PRN Reason: Loose Stool Stop: 03/13/23 06:34 Hydroxyzine HCl (Hydroxyzine Hcl 25 Mg Tab) 50 mg PO HSZ PRN PRN Reason: Insomnia Stop: 03/13/23 06:34 Hydroxyzine HCl (Hydroxyzine Hcl 25 Mg Tab) 25 mg PO Q4H PRN PRN Reason: Anxiety Stop: 03/13/23 06:34 Last Admin: 02/12/23 21:17 Dose: 25 mg [place] Carbonate ([place] Carbonate Slow Rel 300 Mg Tab) 300 mg PO BID CLAR[place]EL Stop: 03/14/23 20:59 Last Admin: 02/13/23 08:37 Dose: 300 mg Magnesium Hydroxide (Magnesium Hydroxide Susp 30 Ml Udc) 30 ml PO DAILY PRN PRN Reason: Constipation Stop: 03/13/23 06:34 Sodium Chloride (Sodium Chloride 0.65% Na Soln 45 Ml ([place])) 1 - 2 sprays NA PRN PRN PRN Reason: Nasal Dryness/Congestion Stop: 03/13/23 06:34 Mental Health & Subst Abuse Tx Psychiatrist [facility] [place] Psych[facility]rist's Date Of Appointment With Psychiatric Provider: 02/18/2023 Time of Appointment with Psychiatrist: 1pm Psychiatric Appointment Comment: [address] [facility], [place], [place] Therapist [facility]'s Date of Therapist Appointment: 02/16/2023 Time of Therapist Appointment: 11am Therapy Appointment Comment: [address], [place], [place] Post Discharge Appointments Primary Care Physician Name Of Family Doctor/PCP: [facility] Time of Appointment with PCP: please follow up as needed
[2023-02-13] MEDS: hydrOXYzine HCl 25 MG TAB PO PRN (21:03)
[2023-02-14] MEDS: LITHIUM CARBONATE SLOW REL 300 MG TAB PO SCH ×2 (08:57→21:27)
--- NOTE | 2023-02-14 16:25 | Psychiatric Progress Note ---
Date of Service February 14, 2023 Impression / Recommendations Impression 38 yo man with a history of ADHD, bipolar affective disorder type I, anxiety who was admitted for worsening depression, SI, and felt unable to remain safe outside of a secure setting in the context of pending divorce and coming to terms with his recent episode of blaise/psychosis. Diagnostically consistent with BPAD current depressive episode as well as unspecified anxiety. He is deemed in need of psychiatric hospitalization for diagnostic clarification, safety and stabilization, medication management and development of further coping skills. MNPR due to periods of increased restlessness and seeming agitation /irritability, unable to tolerate a roommate 02/14/2023: Ongoing depression and some increased GI symptoms today so will hold off on further titration of [place] tonight. (1) Bipolar 1 disorder, depressed, severe: (2) Suicidal ideation: Plan 02/14/2023: Continue current medications and tx plan. 02/13/2023: Continue [place] SR 300mg BID 02/12/2023: Starting [place] SR 300mg BID 02/11/2023:The patient was admitted to the [facility] ([facility] mental health unit) on q15 min checks (behavioral with suicide precautions) for safety. The patient will participate in group, recreational, and milieu therapies and will be offered additional individual and family sessions as clinically appropriate. -Considering mood stabilizer options Inventory Assets Strengths: supportive relationships, willing to get treatment Needs: safety and stabilization, medication adjustment, additional coping skills Suicide Risk Level Suicide Risk Level: Moderate (q15 min suicide checks) (severe depression with SI with plan prior to admission but SI lessening, feels safe in the hospital, able to safety contract and agrees to let nursing/staff know should they develop plan, intent or feel unable to remain safe. ) Risk Factors Assessment Male: Yes : Yes Do You Have Access To A Gun?: No Mental Health Diagnoses: Yes Previous Attempt: No Family History of Suicide: Yes Previous Psychiatric Hospitalization: Yes Hopelessness: Yes Protective Factors Assessment Responsible for Young Children: Yes Employed: No Stable Relationships: Yes Supportive Family: Yes Interval History Identifying Information SHREYAS BROWN is a 38-year-old M who currently lives alone in [place], has a history of ADHD, bipolar affective disorder type I, anxiety and was admitted on 02/11/23 04:52 on a 201 voluntary commitment for worsening depression, SI, and felt unable to remain safe outside of a secure setting. Chief Complaint "I'm a little sad". Review of Systems Sleep Information Total Hours of Sleep: 6.5 Meal Information Percent Meal Consumed - Breakfast: 100 Percent Meal Consumed - Lunch: 100 Percent Meal Consumed - Dinner: 100 Subjective Subjective Patient was seen & assessed and interval progress reviewed with treatment team nursing and social work. Reports he feels a little sad today and a little tired but also wonders if the lithium may already be helping his mood feel more "stable". Some increase in GI symptoms today with some bloating and not as hungry but eating and no changes with bowel movements. Notes he did have ice cream last night which often causes some GI symptoms. Agrees to let nurses know if symptoms worsen at all. Physical Exam Psychiatric Orientation: alert and oriented x 3 Apperance: appropriately dressed and appropriately groomed Eye Contact: good eye contact Motor Behavior: no abnormal motor movements Speech: normal rate/rhythm/volume of speech Affect: + depressed affect and + anxious affect Mood: + depressed mood and + anxious mood Thought Process: goal directed thought process Thought Content: reality based without delusions Suicidal Thoughts: denies suicidal plan (feels safe in the hospital) and denies suicidal intent; + reports suicidal thoughts (intermittent thoughts ) Homicidal Thoughts: denies homicidal thoughts Hallucinations: no auditory hallucinations and no visual hallucinations Cognition: recent memory grossly intact, remote memory grossly intact, attention grossly intact and language grossly intact Estimated Intelligence: consistent with education level Insight: + fair insight Judgment: + limited judgement Vital Signs (Past 24 Hours) Last Vital Signs Temp 37 C 02/14/23 06:43 Pulse 77 02/14/23 06:43 Resp 16 02/14/23 06:43 BP 127/67 02/14/23 06:43 Pulse Ox 100 02/11/23 05:50 O2 Del Method Room Air 02/11/23 05:50 Results & Data ([facility]) Current Inpatient Medications Current Inpatient Medications: Current Inpatient Medications Acetaminophen (Acetaminophen 325 Mg Tab) 650 mg PO Q4H PRN PRN Reason: Headache or Minor Fever Stop: 03/13/23 06:34 Al Hydrox/Mg Hydrox/Simethicone (Aluminum/Magnesium Susp 30 Ml Udc) 30 ml PO Q4H PRN PRN Reason: GI Upset Stop: 03/13/23 06:34 Bismuth Subsalicylate (Bismuth Subsalicylate Liqd 236 Ml) 15 ml PO PRN PRN PRN Reason: Loose Stool Stop: 03/13/23 06:34 Hydroxyzine HCl (Hydroxyzine Hcl 25 Mg Tab) 50 mg PO HSZ PRN PRN Reason: Insomnia Stop: 03/13/23 06:34 Hydroxyzine HCl (Hydroxyzine Hcl 25 Mg Tab) 25 mg PO Q4H PRN PRN Reason: Anxiety Stop: 03/13/23 06:34 Last Admin: 02/13/23 21:03 Dose: 25 mg [place] Carbonate ([place] Carbonate Slow Rel 300 Mg Tab) 300 mg PO BID CLARIBEL Stop: 03/14/23 20:59 Last Admin: 02/14/23 08:57 Dose: 300 mg Magnesium Hydroxide (Magnesium Hydroxide Susp 30 Ml Udc) 30 ml PO DAILY PRN PRN Reason: Constipation Stop: 03/13/23 06:34 Sodium Chloride (Sodium Chloride 0.65% Na Soln 45 Ml ([place])) 1 - 2 sprays NA PRN PRN PRN Reason: Nasal Dryness/Congestion Stop: 03/13/23 06:34 Mental Health & Subst Abuse Tx Psychiatrist Name of Psychiatrist: [facility] [place] Psychiatrist's Date Of Appointment With Psychiatric Provider: 02/18/2023 Time of Appointment with Psychiatrist: 1pm Psychiatric Appointment Comment: [address] [facility] [address], [place], [place] Therapist [facility] of Therapist: [facility] The[facility]'s Date of Therapist Appointment: 02/16/2023 Time of Therapist Appointment: 11am Therapy Appointment Comment: [address], [place], [place] Post Discharge Appointments Primary Care Physician Name Of Family Doctor/PCP: [facility] Time of Appointment with PCP: please follow up as needed
[2023-02-14] MEDS: hydrOXYzine HCl 25 MG TAB PO PRN (21:30)
[2023-02-15] MEDS: LITHIUM CARBONATE SLOW REL 300 MG TAB PO SCH (08:43)
--- NOTE | 2023-02-15 14:09 | Psychiatric Progress Note ---
Date of Service February 15, 2023 Impression / Recommendations Impression 38 yo man with a history of ADHD, bipolar affective disorder type I, anxiety who was admitted for worsening depression, SI, and felt unable to remain safe outside of a secure setting in the context of pending divorce and coming to terms with his recent episode of blaise/psychosis. Diagnostically consistent with BPAD current depressive episode as well as unspecified anxiety. He is deemed in need of psychiatric hospitalization for diagnostic clarification, safety and stabilization, medication management and development of further coping skills. MNPR due to periods of increased restlessness and seeming agitation /irritability, unable to tolerate a roommate 02/15/2023: Mood improving and anxiety lessening. No further GI symptoms since yesterday and he would like to increase [place] now before getting level at 600mg total daily dose. (1) Bipolar 1 disorder, depressed, severe: (2) Suicidal ideation: Plan 02/15/2023: Increase to [place] SR 300mg qAM and 600mg HS. Will check AM level and then will need [place] level in 5-7 days. 02/14/2023: Continue current medications and tx plan. 02/13/2023: Continue [place] SR 300mg BID 02/12/2023: Starting [place] SR 300mg BID 02/11/2023:The patient was admitted to the [facility] ([facility] mental health unit) on q15 min checks (behavioral with suicide precautions) for safety. The patient will participate in group, recreational, and milieu therapies and will be offered additional individual and family sessions as clinically appropriate. -Considering mood stabilizer options Inventory Assets Strengths: supportive relationships, willing to get treatment Needs: safety and stabilization, medication adjustment, additional coping skills Suicide Risk Level Suicide Risk Level: Moderate (q15 min suicide checks) (severe depression with SI with plan prior to admission but SI lessening, feels safe in the hospital, able to safety contract and agrees to let nursing/staff know should they develop plan, intent or feel unable to remain safe. ) Risk Factors Assessment Male: Yes : Yes Do You Have Access To A Gun?: No Mental Health Diagnoses: Yes Previous Attempt: No Family History of Suicide: Yes Previous Psychiatric Hospitalization: Yes Hopelessness: Yes Protective Factors Assessment Responsible for Young Children: Yes Employed: No Stable Relationships: Yes Supportive Family: Yes Interval History Identifying Information SHREYAS BROWN is a 38-year-old M who currently lives alone in [place], has a history of ADHD, bipolar affective disorder type I, anxiety and was admitted on 02/11/23 04:52 on a 201 voluntary commitment for worsening depression, SI, and felt unable to remain safe outside of a secure setting. Chief Complaint "I'm doing alright". Review of Systems Sleep Information Total Hours of Sleep: 6 Meal Information Percent Meal Consumed - Breakfast: 100 Percent Meal Consumed - Lunch: 100 Percent Meal Consumed - Dinner: 90 Subjective Subjective Patient was seen & assessed and interval progress reviewed with treatment team nursing and social work. Sleeping well. No further GI symptoms. Had some increased anxiety this morning but feels this has lessened during the day and overall feels his ruminative thoughts are less intense. Wednesday is the anniversary of his brother's which he processed individually and in groups today. Attending all groups and social with peers. He denies SI. He would like to continue with [place] titration. Physical Exam Psychiatric Orientation: alert and oriented x 3 Apperance: appropriately dressed and appropriately groomed Eye Contact: good eye contact Motor Behavior: no abnormal motor movements Speech: normal rate/rhythm/volume of speech Affect: + anxious affect Mood: + anxious mood Thought Process: goal directed thought process Thought Content: reality based without delusions Suicidal Thoughts: denies suicidal thoughts, denies suicidal plan and denies suicidal intent Homicidal Thoughts: denies homicidal thoughts Hallucinations: no auditory hallucinations and no visual hallucinations Cognition: recent memory grossly intact, remote memory grossly intact, attention grossly intact and language grossly intact Estimated Intelligence: consistent with education level Insight: + fair insight Judgment: + fair judgement Vital Signs (Past 24 Hours) Last Vital Signs Temp 37 C 02/15/23 06:35 Pulse 79 02/15/23 06:36 Resp 16 02/15/23 06:35 BP 119/71 02/15/23 06:36 Pulse Ox 100 02/11/23 05:50 O2 Del Method Room Air 02/11/23 05:50 Results & Data ([facility]) Current Inpatient Medications Current Inpatient Medications: Current Inpatient Medications Acetaminophen (Acetaminophen 325 Mg Tab) 650 mg PO Q4H PRN PRN Reason: Headache or Minor Fever Stop: 03/13/23 06:34 Al Hydrox/Mg Hydrox/Simethicone (Aluminum/Magnesium Susp 30 Ml Udc) 30 ml PO Q4H PRN PRN Reason: GI Upset Stop: 03/13/23 06:34 Bismuth Subsalicylate (Bismuth Subsalicylate Liqd 236 Ml) 15 ml PO PRN PRN PRN Reason: Loose Stool Stop: 03/13/23 06:34 Hydroxyzine HCl (Hydroxyzine Hcl 25 Mg Tab) 50 mg PO HSZ PRN PRN Reason: Insomnia Stop: 03/13/23 06:34 Hydroxyzine HCl (Hydroxyzine Hcl 25 Mg Tab) 25 mg PO Q4H PRN PRN Reason: Anxiety Stop: 03/13/23 06:34 Last Admin: 02/14/23 21:30 Dose: 25 mg [place] Carbonate ([place] Carbonate Slow Rel 300 Mg Tab) 300 mg PO BID CLARIBEL Stop: 03/14/23 20:59 Last Admin: 02/15/23 08:43 Dose: 300 mg Magnesium Hydroxide (Magnesium Hydroxide Susp 30 Ml Udc) 30 ml PO DAILY PRN PRN Reason: Constipation Stop: 03/13/23 06:34 Sodium Chloride (Sodium Chloride 0.65% Na Soln 45 Ml ([place])) 1 - 2 sprays NA PRN PRN PRN Reason: Nasal Dryness/Congestion Stop: 03/13/23 06:34 Mental Health & Subst Abuse Tx Psychiatrist [facility] Date Of Appointment With Psychiatric Provider: 02/18/2023 Time of Appointment with Psychiatrist: 1pm Psychiatric Appointment Comment: [address] [place], [place], [place] Therapist [facility] of [facility]ist[facility] The[facility]'s Date of Therapist Appointment: 02/16/2023 Time of Therapist Appointment: 11am Therapy Appointment Comment: [address] [facility] [address], [place], [place] Post Discharge Appointments Primary Care Physician Name Of Family Doctor/PCP: [facility] Time of Appointment with PCP: Please follow up as needed. Contact Information Discharge Discharge Address: [address] [place] [address], [place] [address]
[2023-02-15] MEDS ORDERED: LITHIUM CARBONATE SLOW REL 300 MG TAB PO SCH (22:00)
[2023-02-15] MEDS: hydrOXYzine HCl 25 MG TAB PO PRN (22:05)
[2023-02-16] MEDS ORDERED: LITHIUM CARBONATE SLOW REL 300 MG TAB PO SCH ×2 (09:00→21:00)
--- NOTE | 2023-02-16 10:01 | Discharge Summary ---
Date of Service February 16, 2023 History of Present Illness Michael presented with his , with whom he's currently in the process of , for increased depression and SI with concerns about his ability to remain safe outside of a secure setting. He identifies recent stressors including the anniversary of his brother's but feels he's been largely ruminating on other stressors such as his divorce and "coming to terms with my mental instability and bipolar disorder". He worries he won't be able to be s table for his kids or to be there for them. He wonders if his kids would be better off without him in their life and maybe would be better with just his money. He's felt down and depressed with symptoms of hopelessness, decreased motivation, low energy and recent SI. He describes his depression as: "I kind of gave up" and "I feel overwhelmed". States he had a job recently but "I could only handle it for 1.5 days because I couldn't focus, my mind was flooded with thoughts".Endorses ongoing high levels of anxiety. He has not been taking any psychiatric medications. Physical Exam Vital Signs (Past 24 Hours) Last Vital Signs Temp 36.6 C 02/16/23 06:40 Pulse 73 02/16/23 06:40 Resp 16 02/16/23 06:40 BP 120/70 02/16/23 06:40 Pulse Ox 100 02/11/23 05:50 O2 Del Method Room Air 02/11/23 05:50 See admission H&P and DOD summary. Principal Diagnosis Bipolar Affective Disorder, current depressive episode Psychiatric Data See daily stay summary. In short, patient was engaged with the social/therapeutic milieu of the unit, safety was maintained and the patient was cooperative with care. Medication changes included initiation of Rodman for bipolar affective disorder and they tolerated this well. The dose was initially increased to 300mg SR qAM and 600mg HS the day prior to admission but given level at 4 days of 0.6 mmol/L this was reduced back to Rodman SR 300mg BID prior to discharge. Baseline labs of thyroid function, kidney function, weight, electrolytes, CBC, and UA were preformed and WNL. Rodman level at discharge was 0.6 mmol/L. Recommend repeat lithium level in 5-7 days and then repeat lithium level, thyroid function and kidney function labwork at 6 months and then annually or anytime symptoms arise. Michael was educated on risks of dehydration, renal, thyroid, cardiac, drug interactions (NSAIDs, ACEIs, angiotensin receptor antagonists) which he states understanding of. Motivational interviewing was done regarding cannabis use and he is in the action stage of avoiding future use. A family session was held and safety plan was completed prior to discharge. He actively and insightfully participated in safety planning and in discussions about ways to seek support and recognizing warning signs and utilizing coping skills. Reviewed mobile apps that could be used for additional ways to have their safety plan and contacts easily available should thoughts of SI re-emerge in the future. Reviewed importance of seeking emergency care should SI intensify, worsen or should they feel unsafe in the future which they agree to do. On the day of discharge he stated his mood was "tired but less anxious and ready to go" and remained future-oriented including getting his dog, seeing his children, relaxing and grocery shopping and engaging in aftercare appointments for psychiatry, therapy and weekly group therapy . Day of Discharge Assessment Today the patient voices readiness for discharge. They note improvement in mood and anxiety. They deny thoughts of harm to self or others. Thoughts are organized and they are clinically improved from admission. There is no evidence of psychosis. They improved in the hospital with support and medication adjustments. They agree to take medications as prescribed and keep follow-up appointments. At the time of the discharge they are deemed to be stable and appropriate for outpatient level of care. They are not deemed to be at imminent risk of harm to self or others. They are aware of emergency and crisis services. Knows to call 911 or go to nearest emergency care center if in a crisis which cannot be handled as an outpatient. Transition of Care Transition Of Care Record: was reviewed with the patient Advance Directives Advance Directives Information Provided: Yes Advance Directives: No Mental Health Advance Directive: No Advance Directives on File: No Living Will: No Power of Galley Cook: No Advance Directives Reason:: Declines as Mental Health Visit. Suicide Risk Level Suicide Risk Level Comments: Acute risk is low given improvement in mood and denial of SI, lack of access to lethal means, plan to avoid substance use, improvement in sleep, and hopefulness. Chronic risk is moderate given multiple non-modifiable risk factors: psychiatric co-morbid diagnoses, periods of impulsivity, prior psychiatric hospitalizations, limited social support as currently going through a divorce, mood disorder, family history of by suicide but also with protective factors including: good family support, has young children, sense of responsibility to family and social supports, outpatient care in place, positive coping skills, positive problem solving, capacity to establish therapeutic alliance, willingness to engage with treatment, capacity for self-observation. Counseled on ways to reduce acute and chronic risk including engaging with outpatient providers, using safety plan if needed, utilizing supports, taking medication, and using coping skills. Modifiable risk factors of SI and depression were addressed during hospitalization through development of new coping skills, family meeting, safety planning, and medication adjustments. Risk Factors Assessment Male: Yes : Yes Do You Have Access To A Gun?: No Health Problems: No Mental Health Diagnoses: Yes Substance Use Disorders: No Previous Attempt: No Family History of Suicide: Yes Previous Psychiatric Hospitalization: Yes Hopelessness: No Protective Factors Assessment : No Responsible for Young Children: Yes Employed: No Stable Relationships: Yes Supportive Family: Yes Discharge Data Lab Results 02/10/23 02/10/23 02/10/23 21:45 21:45 21:45 WBC 6.37 RBC 4.97 Hgb 15.3 Hct 45.2 MCV 90.9 MCH 30.8 MCHC 33.8 RDW Std Deviation 39.4 RDW Coeff of Kevin 11.9 Plt Count 213 MPV 9.4 Immature Gran % (Auto) 0.2 Neut % (Auto) 67.7 Lymph % (Auto) 23.4 [place] % (Auto) 6.8 Eos % (Auto) 1.6 Baso % (Auto) 0.3 Neut # (Auto) 4.32 Lymph # (Auto) 1.49 [place] # (Auto) 0.43 Eos # (Auto) 0.10 Baso # (Auto) 0.02 Immature Gran # (Auto) 0.01 Sodium 140 Potassium 3.5 Chloride 104 Carbon Dioxide 31 Anion Gap 5 BUN 21 Creatinine 0.88 Est Cr Clr Drug Dosing 98.8 Est GFR ( Amer) 124.5 Est GFR (Non-Af Amer) 107.5 BUN/Creatinine Ratio 23.9 H Glucose 93 Calcium 9.1 Total Bilirubin 0.6 AST 14 ALT 18 Alkaline Phosphatase 61 Total Protein 6.7 Albumin 4.3 Globulin 2.4 L Albumin/Globulin Ratio 1.8 TSH 2.298 Urine Color Urine Appearance Urine pH Ur Specific [place] Urine Protein Urine Glucose (UA) Urine Ketones Urine Blood Urine Nitrite Urine Bilirubin Urine Urobilinogen Ur Leukocyte Esterase Salicylates Urine Opiates Screen Ur Methadone, Qual Acetaminophen Urine Barbiturates Ur Phencyclidine (PCP) U Amphetamin/Meth Scrn MDMA (Ecstasy) Screen U Benzodiazepines Scrn Rodman Ur Cocaine Metabolite U Marijuana (THC) Screen U Marijuana THC Carboxy Drug Screen Comment Ethyl Alcohol mg/dL SARS-CoV-2, RNA, NAAT 02/10/23 02/10/23 02/10/23 21:45 21:45 21:45 WBC RBC Hgb Hct MCV MCH MCHC RDW Std Deviation RDW Coeff of Kevin Plt Count MPV Immature Gran % (Auto) Neut % (Auto) Lymph % (Auto) [place] % (Auto) Eos % (Auto) Baso % (Auto) Neut # (Auto) Lymph # (Auto) [place] # (Auto) Eos # (Auto) Baso # (Auto) Immature Gran # (Auto) Sodium Potassium Chloride Carbon Dioxide Anion Gap BUN Creatinine Est Cr Clr Drug Dosing Est GFR ( Amer) Est GFR (Non-Af Amer) BUN/Creatinine Ratio Glucose Calcium Total Bilirubin AST ALT Alkaline Phosphatase Total Protein Albumin Globulin Albumin/Globulin Ratio TSH Urine Color Yellow Urine Appearance Clear Urine pH 5.5 Ur Specific [place] 1.033 H Urine Protein Negative Urine Glucose (UA) Negative Urine Ketones Negative Urine Blood Negative Urine Nitrite Negative Urine Bilirubin Negative Urine Urobilinogen Negative Ur Leukocyte Esterase Negative Salicylates < 3.0 L Urine Opiates Screen Ur Methadone, Qual Acetaminophen < 3 L Urine Barbiturates Ur Phencyclidine (PCP) U Amphetamin/Meth Scrn MDMA (Ecstasy) Screen U Benzodiazepines Scrn Rodman Ur Cocaine Metabolite U Marijuana (THC) Screen U Marijuana THC Carboxy Drug Screen Comment Ethyl Alcohol mg/dL < 10.0 SARS-CoV-2, RNA, NAAT 02/10/23 02/10/23 02/10/23 21:45 21:45 21:45 WBC RBC Hgb Hct MCV MCH MCHC RDW Std Deviation RDW Coeff of Kevin Plt Count MPV Immature Gran % (Auto) Neut % (Auto) Lymph % (Auto) [place] % (Auto) Eos % (Auto) Baso % (Auto) Neut # (Auto) Lymph # (Auto) [place] # (Auto) Eos # (Auto) Baso # (Auto) Immature Gran # (Auto) Sodium Potassium Chloride Carbon Dioxide Anion Gap BUN Creatinine Est Cr Clr Drug Dosing Est GFR ( Amer) Est GFR (Non-Af Amer) BUN/Creatinine Ratio Glucose Calcium Total Bilirubin AST ALT Alkaline Phosphatase Total Protein Albumin Globulin Albumin/Globulin Ratio TSH Urine Color Urine Appearance Urine pH Ur Specific [place] Urine Protein Urine Glucose (UA) Urine Ketones Urine Blood Urine Nitrite Urine Bilirubin Urine Urobilinogen Ur Leukocyte Esterase Salicylates Urine Opiates Screen Neg Ur Methadone, Qual Neg Acetaminophen Urine Barbiturates Neg Ur Phencyclidine (PCP) Neg U Amphetamin/Meth Scrn Neg MDMA (Ecstasy) Screen Neg U Benzodiazepines Scrn Neg Rodman Ur Cocaine Metabolite Neg U Marijuana (THC) Screen Pos H U Marijuana THC Carboxy 75 H Drug Screen Comment SEE NOTE Ethyl Alcohol mg/dL SARS-CoV-2, RNA, NAAT NEGATIVE 02/16/23 08:13 WBC RBC Hgb Hct MCV MCH MCHC RDW Std Deviation RDW Coeff of Kevin Plt Count MPV Immature Gran % (Auto) Neut % (Auto) Lymph % (Auto) [place] % (Auto) Eos % (Auto) Baso % (Auto) Neut # (Auto) Lymph # (Auto) [place] # (Auto) Eos # (Auto) Baso # (Auto) Immature Gran # (Auto) Sodium Potassium Chloride Carbon Dioxide Anion Gap BUN Creatinine Est Cr Clr Drug Dosing Est GFR ( Amer) Est GFR (Non-Af Amer) BUN/Creatinine Ratio Glucose Calcium Total Bilirubin AST ALT Alkaline Phosphatase Total Protein Albumin Globulin Albumin/Globulin Ratio TSH Urine Color Urine Appearance Urine pH Ur Specific [place] Urine Protein Urine Glucose (UA) Urine Ketones Urine Blood Urine Nitrite Urine Bilirubin Urine Urobilinogen Ur Leukocyte Esterase Salicylates Urine Opiates Screen Ur Methadone, Qual Acetaminophen Urine Barbiturates Ur Phencyclidine (PCP) U Amphetamin/Meth Scrn MDMA (Ecstasy) Screen U Benzodiazepines Scrn Rodman 0.6 Ur Cocaine Metabolite U Marijuana (THC) Screen U Marijuana THC Carboxy Drug Screen Comment Ethyl Alcohol mg/dL SARS-CoV-2, RNA, NAAT Hospital Course (1) Bipolar 1 disorder, depressed, severe: (2) Suicidal ideation: (3) VIRIDIANA (generalized anxiety disorder): Plan 02/16/2023: Given AM Li level of 0.6 mmol/L and some fatigue will reduce back to Rodman SR 300mg BID. 02/15/2023: Increase to Rodman SR 300mg qAM and 600mg HS. Will check AM level and then will need Rodman level in 5-7 days. 02/14/2023: Continue current medications and tx plan. 02/13/2023: Continue Rodman SR 300mg BID 02/12/2023: Starting Rodman SR 300mg BID 02/11/2023:The patient was admitted to the [facility] ([facility] mental health unit) on q15 min checks (behavioral with suicide precautions) for safety. The patient will participate in group, recreational, and milieu therapies and will be offered additional individual and family sessions as clinically appropriate. -Considering mood stabilizer options Mental Health & Subst Abuse Tx Psychiatrist Name of Psychiatrist: [facility] ([facility])- intake Psychiatrist's Date Of Appointment With Psychiatric Provider: 02/18/2023 Time of Appointment with Psychiatrist: 1pm Psychiatric Appointment Comment: [address] [place], [place], [place] Therapist Name of Therapist: [facility] ([facility])- Walker Contreras Therapist's Date of Therapist Appointment: 02/16/2023 Time of Therapist Appointment: 11am Therapy Appointment Comment: [address] [place], [place], [place] Post Discharge Appointments Primary Care Physician Name Of Family Doctor/PCP: Jacquie Castro Primary Care Time of Appointment with PCP: Please follow up as needed. Other #1: Name of Aftercare Appointment: [facility] Phone Number of Aftercare Appointment: [phone] Aftercare Appointment Comment: Please call for more information on current therapy groups. Contact Information Discharge Discharge [address]: [address] [place] [address], [place] [address] Discharge Plan Discharge Items Patient Disposition: Home - Self-Care Reason For Visit: UNSPECIFIED MOOD DISORDER Discharge Diagnosis: Bipolar Affective Disorder, current depressive episode Activity: Resume your previous activity Non-emergency contact: Primary Care Provider, Psychiatrist and Therapist Call non-emergency contact if: you have any medication questions and your symptoms worsen Follow-up/Referrals: Horacio Castro DO [Primary Care Provider] - Diet: Regular Addtl Attending Provider Instructions: We discussed optional mobile apps: -Suicide safety plan -Virtual Hope Box SPECIAL CARE INSTRUCTIONS: 1. Follow through with your scheduled aftercare appointments. If unable to keep an appointment, please call to reschedule. 2. Take your medication only as prescribed. Medication should not be changed or stopped without the approval of your doctor. In the event of worsening symptoms or concerns about side effects, contact your doctor immediately. 3. Utilize new healthy coping skills, anger management skills, and stress management skills learned during your hospitalization. Journal feelings and process them with a support person. Identify stressors or situations that may result in relapse, deterioration or inappropriate behaviors and develop a plan to deal with those issues. 4. If your coping skills are ineffective and you are in crisis, contact your outpatient providers for direction. If unable to reach your providers, please call the [facility] CRISIS LINE AT , go to the [facility] walk-in center at [address] [place] [address] [address], [place], or go to the closest Emergency Room. 5. Avoid alcohol and un-prescribed drugs. 6. You have been provided with the Mental Health Advance Directives Pamphlet for your review. 7. Your condition is stable for discharge to outpatient level of care, but recovery is an ongoing process. Ifthoughts to harm yourself or others return, follow the safety plan developed during your stay. Planning for a safe return home includes securing weapons. Our treatment team recommends weaponsbe removed from the home until your outpatient provider reassesses your progress. In rare cases where the items themselvescannot be removed, guns and ammunitionshould be secured separatelyand keys stored by a reliable personoutside of the home. If you were admitted on an involuntary commitment, the police or other legal authorities may be involved in this process. AFTERCARE APPOINTMENTS: * Please call your insurance company prior to your scheduled appointment to confirm your aftercare providers are covered. Take your insurance information to your appointments. WHO TO CALL AND WHEN: Medical Emergencies: For questions or emergencies related to your hospital stay, please contact the Inpatient Behavioral Health Unit at [phone]. A tornado chaser is on-call 19/04 for the Behavioral Health Unit for emergencies At any time you feel your situation is an emergency, you may also call 911 immediately. Pending Studies at Discharge: No Stand-Alone Forms: My [facility] Medications and DC Order Prescriptions: New lithium carbonate 300 mg Tablet Extended Release 300 mg PO BID 30 Days Qty: 60 0RF Continued hydroxyzine HCl 25 mg tablet 25 mg PO Q4 PRN (Reason: Anxiety) Discontinued escitalopram oxalate 20 mg tablet 20 mg PO DAILY Discharge Orders: Discharge Order (Routine); Ordered 02/16/23 Ordered By: Sharon Bowen Admission Data Admit Date/Time: 02/11/23 04:52 Attending Provider: Sharon Bowen Admit Provider: Sharon Bowen Primary Care Provider: Horacio Castro Other Interventions: Discharge Summary Assessment (RN) Last Done: 02/16/23 10:48 PSY Interdisciplinary Discharge Planning Last Done: 02/16/23 10:48 Coding Level of Care Code 21206 D/C day mgmt > 30 min Diagnoses Bipolar 1 disorder, depressed, severe F31.4 Suicidal ideation R45.851 VIRIDIANA (generalized anxiety disorder) F41.1 Time Spent (min) 45
== END 2023-02-16 11:20 | disposition home or self-care (01) | DRG 885 ==
LOC: ED 21:15 → 3S 02-11 04:52